=== PATIENT | female | born 1970 | race Caucasian/White ===

== ENCOUNTER 2016-04-29 16:23 | Observation (INO) | payer BC, OTHER ==
[~2016-04-29] VITALS: Ht 162.6 cm; Wt 93.0 kg
[2016-04-29 17:43] LABS: BASO % 0.6 % (0.0-1.0); EOS # 0.2 K/mm3 (0.0-0.50); EOS % 2.9 % (0.0-3.0); LARGE UNSTAINED CELL # 0.2 K/mm3 (0.0-0.4); LARGE UNSTAINED CELL % 3.4 % (0.0-4.0); LYMPH # 2.4 K/mm3 (1.5-4.5); LYMPH % 30.1 % (24.0-44.0); MEAN CORPUSCULAR HEMOGLOBIN 19.9 pg (27.0-33.0); MEAN CORPUSCULAR HGB CONC 29.1 g/dl (32.0-36.5); MEAN CORPUSCULAR VOLUME 68.2 fl (80.0-96.0); MONO # 0.5 K/mm3 (0.0-0.8); MONO % 7.6 % (0.0-5.0); NEUTROPHILS # 3.9 K/mm3 (1.8-7.7); NEUTROPHILS % 55.4 % (36.0-66.0); PLATELET COUNT, AUTOMATED 294 k/mm3 (150-450); RED CELL DISTRIBUTION WIDTH 16.4 % (11.5-14.5)
[2016-04-29 17:48] LABS: ADD MORPHOLOGY? YES
[2016-04-29 17:57] LABS: ANION GAP 8 MEQ/L (8-16); BLOOD UREA NITROGEN 17 MG/DL (7-18); CALCIUM LEVEL 9.2 MG/DL (8.5-10.1); CARBON DIOXIDE LEVEL 27 MEQ/L (21-32); CHLORIDE LEVEL 106 MEQ/L (98-107); CREATININE FOR GFR 0.71 MG/DL (0.55-1.02); GLOMERULAR FILTRATION RATE > 60.0 (>58); GLUCOSE, FASTING 107 MG/DL (70-105); POTASSIUM SERUM 4.1 MEQ/L (3.5-5.1); SODIUM LEVEL 141 MEQ/L (136-145)
[2016-04-29] MEDS ORDERED: ISOVUE-370 76% 100ML VIAL (Q9967) As Ordered ONE (18:12)
[2016-04-29 18:38] LABS: ANISOCYTOSIS 1+; HYPOCHROMASIA 3+; MICROCYTOSIS 3+
--- NOTE | 2016-04-29 18:52 | REP ---
Clinical: Acute chest pain. Technique: Axial contrast enhanced images from the thoracic inlet to the upper abdomen using 100 ml Isovue 370 intravenous contrast material with coronal and sagittal re-formations. Findings: Satisfactory enhancement of the pulmonary vasculature is achieved and no filling defects are identified to suggest pulmonary embolus. Thoracic aorta is normal caliber without aneurysm or dissection. Heart and pericardium are normal. Bilateral lung harris are well aerated and clear without acute pulmonary parenchymal consolidation or atelectasis. No nodule or mass lesion. No pleural effusion/reaction. No pneumothorax. No adenopathy. Limited evaluation of the upper abdomen demonstrates chronic cortical scarring involving the right kidney with nonobstructing 9 mm calculus. Impression: No evidence for pulmonary embolus. No acute pleuroparenchymal or mediastinal process. Chronic cortical scarring involving the right kidney with 9 mm nonobstructing calculus. Signed by Edilberto Kiran MD 04/29/2016 06:43 P
[2016-04-29] MEDS ORDERED: IRON18TA PO (19:33)
--- NOTE | 2016-04-29 20:04 | ECGEPIP ---
Stationary ECG Study [facility] - ED Test Date: 2016-04-29 Pat Name: TOBI BARTON Department: Room: - Gender: F [place] Supervisor: lindsey : 1970 Requested By: ELVIN Rolon Order Number: [id number] Reading MD: Elizabeth Lawrence Measurements Intervals [place] Rate: 84 P: 27 AK: 135 QRS: 58 QRSD: 98 T: 29 QT: 353 QTc: 418 Interpretive Statements SINUS RHYTHM NSTTW ABNORMALITY NO PRIOR FOR COMPARISON Electronically Signed On 04-29-2016 20:04:48 EST by Elizabeth Lawrence
--- NOTE | 2016-04-29 20:32 | EDDOCDS ---
Physician Documentation [facility] Name: María Crawford Age: 46 yrs Sex: Female : 1970 Arrival Date: 04/29/2016 Time: 16:23 Bed 10 Private MD: NO PRIMARY PHYSICIAN, . Disposition: 04/29/16 19:16 Hospitalization ordered by Bro Senior for Inpatient Admission. Preliminary diagnosis is Dietary folate deficiency anemia. - Bed requested for M PED. - Status is Inpatient Admission. mlc - Condition is Stable. - Problem is chronic. - Symptoms have worsened. Historical: - Allergies: no known allergies; - Home Meds: 1. Iron CR Oral 5 tab daily - PMHx: Anemia; Sleep Apnea w/ CPAP; - PSHx: Gastric Bypass; - Social history: Smoking status: Patient states former smoker of tobacco. No barriers to communication noted, The patient speaks fluent Y[place], Speaks appropriately for age. - Family history: Not pertinent. - : The pt / caregiver states he / she is not on anticoagulants. Home medication list is obtained from the patient. - Exposure Risk Screening:: None identified. COUNTY ENGINEER: 04/29 16:35 LMP N/A - Irregular menses ld5 Vital Signs: 16:26 BP 187 / 98; Pulse 87; Resp 18 S; Temp 98.2(O); Pulse Ox 100% on R/A; Weight 92.99 kg / gr2 205.01 lbs (R); Height 5 ft. 4 in. (162.56 cm) (R); Pain 2/10; 16:41 BP 182 / 102 (auto/); pml 16:43 Pulse 84 MON; Pulse Ox 100% ; pml 16:56 BP 176 / 100 (auto/); pml 16:57 Pulse 94 MON; Pulse Ox 98% ; pml 17:11 BP 169 / 90 (auto/); pml 17:12 Pulse 88 MON; Pulse Ox 98% ; pml 17:26 BP 165 / 94 (auto/); pml 17:27 Pulse 80 MON; Pulse Ox 100% ; pml 17:41 BP 177 / 91 (auto/); pml 17:42 Pulse 104 MON; pml 17:56 BP 176 / 96 (auto/); pml 17:57 Pulse 86 MON; Pulse Ox 99% ; pml 18:11 BP 173 / 97 (auto/); pml 18:12 Pulse 86 MON; Pulse Ox 99% ; pml 18:22 BP 167 / 97 Supine; Pulse 76; pml 18:22 BP 173 / 102 Sitting; Pulse 80; pml 18:22 BP 180 / 110 Standing; Pulse 90; pml 18:26 BP 170 / 95 (auto/); mlc 18:26 Pulse 84 MON; Pulse Ox 100% ; mlc 18:41 BP 162 / 83 (auto/); mlc 18:42 Pulse 86 MON; Pulse Ox 99% ; mlc 18:56 BP 155 / 80 (auto/); mlc 18:57 Pulse 84 MON; Pulse Ox 98% ; mlc 19:07 Pulse 78 MON; Pulse Ox 100% ; mlc 19:56 BP 193 / 106 (auto/); mlc 20:07 BP 166 / 100; Pulse 98; Resp 18; Pulse Ox 98% on R/A; Pain 0/10; mlc 20:16 Temp 98.9(O); mlc 16:26 Body Mass Index 35.19 (92.99 kg, 162.56 cm) gr2 MDM: 16:38 ECG WITH READING ER PHYS+CARDIAG ordered. EDMS 16:52 Quality Systems Specialist/Pulse Ox/q 15 min VS ordered. fg 16:52 IV Saline Lock ordered. fg 16:52 Rhythm Strip to chart ordered. fg 16:52 Orthostatic VS ordered. fg 16:53 Chest, 1 View Ordered. EDMS 16:53 -Blood Culture Ordered. EDMS 16:53 B-Type Natiuretic Peptide Ordered. EDMS 16:53 Basic Metabolic Profile Ordered. EDMS 16:53 CBC with Diff Ordered. EDMS 17:28 CT Chest Angio R/O PE Ordered. EDMS 17:42 Financial registration complete. zo 17:43 [facility] Payment Agreement was scanned into [employer] and attached to record. zo 17:49 RBC MORPH PROF NO CHARGE Ordered. EDMS 19:06 CARDIAC MARKER PANEL Ordered. EDMS 19:09 Transfuse PRBC's 2 units, ensure PRBCs ordered in lab ordered. fg 19:10 Type and Cross, Packed Cells Ordered. EDMS 19:11 TYPE & SCREEN Ordered. EDMS 19:16 BED REQUEST+ADM ordered. EDMS 19:18 Admission / Observation Status ordered. EDMS Signatures: Dispatcher [employer] EDMS Jovanny Carrizales, Drill Bit Sharpener Unit ml3 Dwain Dill Laura,RN RN ld5 Agnieszka Burgos,RN RN pml Jena No,RN RN Emily Staley MD MD fg The chart was reviewed and I authenticate all verbal orders and agree with the evaluation and treatment provided.Corrections: (The following items were deleted from the chart) 19:06 17:28 TROPONIN+LAB ordered. EDMS EDMS 19: 17:28 CARDIAC MARKER PANEL+LAB ordered. EDMS EDMS Attachments: 17:43 [facility] Payment Agreement zo MTDD
--- NOTE | 2016-04-29 20:32 | EDDOCDS ---
Nurse's Notes [facility] Name: María Crawford Age: 46 yrs Sex: Female : 1970 Arrival Date: 04/29/2016 Time: 16:23 Bed 10 Private MD: NO PRIMARY PHYSICIAN, . Diagnosis: Dietary folate deficiency anemia Presentation: 04/29 16:30 Presenting complaint: Patient states: Fluttering to chest and feeling lightheaded ld5 starting this morning. Several episodes of chest pain that resolved. Has experienced this before but never lasting this long. Frequently SOB. Increasing amount of fatigue. Adult Sepsis Screening: The patient does not have new or worsening altered mentation. Patient's respiratory rate is less than 22. Systolic blood pressure is greater than 100. Patient has a qSOFA score of 0- Negative Sepsis Screen. Suicide/Homicide risk assessment- the patient denies having any suicidal and/or homicidal ideations and does not present with any other emotional, behavioral or mental health complaints. Status: Patient is not a service architect or dependent. Transition of care: patient was not received from another setting of care. 16:30 Acuity: DEIRDRE Level 2 ld5 16:30 Method Of Arrival: Walkin/Carried/Asstd ld5 Triage Assessment: 16:35 General: Appears in no apparent distress, Behavior is cooperative. Pain: Denies pain. ld5 Neurological: Level of Consciousness is awake, alert. Respiratory: Onset: The symptoms/episode began/occurred this morning, pt has to take breaks when speaking to catch breath Reports shortness of breath at rest on exertion cough that is non-productive. Derm: Skin is intact, Skin is dry, Skin is pale. WEIGHT CHECKER: 16:35 LMP N/A - Irregular menses ld5 Historical: - Allergies: no known allergies; - Home Meds: 1. Iron CR Oral 5 tab daily - PMHx: Anemia; Sleep Apnea w/ CPAP; - PSHx: Gastric Bypass; - Social history: Smoking status: Patient states former smoker of tobacco. No barriers to communication noted, The patient speaks fluent [place] Islander, Speaks appropriately for age. - Family history: Not pertinent. - : The pt / caregiver states he / she is not on anticoagulants. Home medication list is obtained from the patient. - Exposure Risk Screening:: None identified. Screenin:23 Screening information is obtained from the patient. Fall risk: No risks identified. pml Assistance ADL's: requires no assistance with activities of daily living. Abuse/DV Screen: The patient / caregiver reports he/she is: not in a situation that causes fear, pain or injury. Nutritional screening: No deficits noted. Advance Directives: Currently, there is no health care proxy. home support is adequate. Assessment: 17:00 General: Appears in no apparent distress, comfortable, Behavior is appropriate for age, pml cooperative. Pain: Denies pain. Neurological: Level of Consciousness is awake, alert, Oriented to person, place, time. Cardiovascular: Capillary refill < 3 seconds Rhythm is sinus rhythm No ectopy. Derm: Skin is pink, warm & dry. 18:20 General: Appears in no apparent distress, comfortable. Pain: Denies pain. Neurological: pml Level of Consciousness is awake, alert, Oriented to person, place, time. Cardiovascular: Capillary refill < 3 seconds Rhythm is sinus rhythm No ectopy. Respiratory: Airway is patent Respiratory effort is even, unlabored, Respiratory pattern is regular, symmetrical, Breath sounds are clear bilaterally. GI: Abdomen is non- distended. Derm: Skin is pink, warm & dry. 19:07 General: Appears in no apparent distress, comfortable, Behavior is cooperative, mlc pleasant. General: pt drinking water, tolerating well. . Pain: Denies pain. Neurological: Level of Consciousness is awake, alert, obeys commands, Oriented to person, place, time. Cardiovascular: Capillary refill < 3 seconds Heart tones S1 S2 present Rhythm is sinus rhythm Chest pain is denied. Respiratory: Airway is patent Respiratory effort is even, unlabored, Respiratory pattern is regular, Breath sounds are clear bilaterally. Derm: Skin is pale. Vital Signs: 16:26 BP 187 / 98; Pulse 87; Resp 18 S; Temp 98.2(O); Pulse Ox 100% on R/A; Weight 92.99 kg gr2 (R); Height 5 ft. 4 in. (162.56 cm) (R); Pain 2/10; 16:41 BP 182 / 102 (auto/); pml 16:43 Pulse 84 MON; Pulse Ox 100% ; pml 16:56 BP 176 / 100 (auto/); pml 16:57 Pulse 94 MON; Pulse Ox 98% ; pml 17:11 BP 169 / 90 (auto/); pml 17:12 Pulse 88 MON; Pulse Ox 98% ; pml 17:26 BP 165 / 94 (auto/); pml 17:27 Pulse 80 MON; Pulse Ox 100% ; pml 17:41 BP 177 / 91 (auto/); pml 17:42 Pulse 104 MON; pml 17:56 BP 176 / 96 (auto/); pml 17:57 Pulse 86 MON; Pulse Ox 99% ; pml 18:11 BP 173 / 97 (auto/); pml 18:12 Pulse 86 MON; Pulse Ox 99% ; pml 18:22 BP 167 / 97 Supine; Pulse 76; pml 18:22 BP 173 / 102 Sitting; Pulse 80; pml 18:22 BP 180 / 110 Standing; Pulse 90; pml 18:26 BP 170 / 95 (auto/); mlc 18:26 Pulse 84 MON; Pulse Ox 100% ; mlc 18:41 BP 162 / 83 (auto/); mlc 18:42 Pulse 86 MON; Pulse Ox 99% ; mlc 18:56 BP 155 / 80 (auto/); mlc 18:57 Pulse 84 MON; Pulse Ox 98% ; mlc 19:07 Pulse 78 MON; Pulse Ox 100% ; mlc 19:56 BP 193 / 106 (auto/); mlc 20:07 BP 166 / 100; Pulse 98; Resp 18; Pulse Ox 98% on R/A; Pain 0/10; mlc 20:16 Temp 98.9(O); mlc 16:26 Body Mass Index 35.19 (92.99 kg, 162.56 cm) gr2 Vitals: 16:26 Log In Time: April 29, 2016 at 16:26. RN notified that patient meets Red Flag gr2 criteria. ED Course: 16:25 Patient visited by Serge Smith. gr2 16:25 Patient moved to Waiting gr2 16:26 NO PRIMARY PHYSICIAN, . is Private Physician. gr2 16:29 Patient visited by Serge Smith. gr2 16:29 Patient moved to Pre RCE gr2 16:33 Triage Initiated ld5 16:36 Patient visited by Riana Mulligan,MARCO. ld5 16:37 Karli Pierson,RN is Primary Nurse. ld5 16:37 Agnieszka Burgos,MARCO is Primary Nurse. ld5 16:37 Patient moved to 10 ld5 16:45 Patient visited by Darlene Johnson. dem1 16:45 playground monitor on. Pulse ox on. NIBP on. dem1 16:45 EKG done. (by ED staff). Reviewed by Emily Ramirez MD. dem1 16:50 Emily Ramirez MD is Attending Physician. fg 17:16 Patient visited by Emily Ramirez MD. fg 17:26 -Blood Culture Sent. jc4 17:26 B-Type Natiuretic Peptide Sent. jc4 17:26 Basic Metabolic Profile Sent. jc4 17:26 CBC with Diff Sent. jc4 17:27 Inserted saline lock: 20 gauge in right antecubital area The patient tolerated the jc4 procedure well. 17:43 [facility] Payment Agreement was scanned into [employer] and attached to record. zo 18:23 Patient visited by Agnieszka Burgos RN. pml 18:23 The patient / caregiver is instructed regarding the plan of care and ED course. Patient pml has correct armband on for positive identification. Placed in gown. Bed in low position. Call light in reach. Side rails up X2. 19:00 Jena No,RN is Primary Nurse. mlc 19:07 CARDIAC MARKER PANEL Sent. mlc 19:08 CT Chest Angio R/O PE Returned. EDMS 19:09 Patient visited by Jena No RN. mlc 19:12 Type and Cross, Packed Cells Sent. mlc 19:15 Bro Senior DO is Hospitalizing Provider. fg 20:09 Bre Hartman historian dramatic arts. ys2 20:16 No procedures done that require assistance. mlc Order Results: Lab Order: B-Type Natiuretic Peptide; SPEC'M 04/29/16 17:23 Test: BRAIN NATRIURETIC PEPTIDE; Value: 10.2; Range: <100; Units: PG/ML; Status: F Lab Order: Basic Metabolic Profile; SPEC'M 04/29/16 17:23 Test: GLUCOSE, FASTING; Value: 107; Range: 70-105; Abnormal: Above high normal; Units: MG/DL; Status: F Test: BLOOD UREA NITROGEN; Value: 17; Range: 7-18; Units: MG/DL; Status: F Test: CREATININE FOR GFR; Value: 0.71; Range: 0.55-1.02; Units: MG/DL; Status: F Test: GLOMERULAR FILTRATION RATE; Value: > 60.0; Range: >58; Status: F Test: SODIUM LEVEL; Value: 141; Range: 136-145; Units: MEQ/L; Status: F Test: POTASSIUM SERUM; Value: 4.1; Range: 3.5-5.1; Units: MEQ/L; Status: F Test: CHLORIDE LEVEL; Value: 106; Range: 98-107; Units: MEQ/L; Status: F Test: CARBON DIOXIDE LEVEL; Value: 27; Range: 21-32; Units: MEQ/L; Status: F Test: ANION GAP; Value: 8; Range: 8-16; Units: MEQ/L; Status: F Test: CALCIUM LEVEL; Value: 9.2; Range: 8.5-10.1; Units: MG/DL; Status: F Test Note: ; Units are mL/min/1.73 m2 Chronic Kidney Disease Staging per NKF: Stage I & II GFR >=60 Normal to Mildly Decreased Stage III GFR 30-59 Moderately Decreased Stage IV GFR 15-29 Severely Decreased Stage V GFR <15 Very Little GFR Left ESRD GFR <15 on HARDWARE SALES ASSISTANT Lab Order: CBC with Diff; SPEC'M 04/29/16 17:23 Test: WHITE BLOOD COUNT; Value: 7.0; Range: 4.0-10.0; Units: K/mm3; Status: F Test: RED BLOOD COUNT; Value: 4.48; Range: 4.00-5.40; Units: M/mm3; Status: F Test: HEMOGLOBIN; Value: 8.9; Range: 12.0-16.0; Abnormal: Below low normal; Units: g/dl; Status: F Test: HEMATOCRIT; Value: 30.6; Range: 36.0-47.0; Abnormal: Below low normal; Units: %; Status: F Test: MEAN CORPUSCULAR VOLUME; Value: 68.2; Range: 80.0-96.0; Abnormal: Below low normal; Units: fl; Status: F Test: MEAN CORPUSCULAR HEMOGLOBIN; Value: 19.9; Range: 27.0-33.0; Abnormal: Below low normal; Units: pg; Status: F Test: MEAN CORPUSCULAR HGB CONC; Value: 29.1; Range: 32.0-36.5; Abnormal: Below low normal; Units: g/dl; Status: F Test: RED CELL DISTRIBUTION WIDTH; Value: 16.4; Range: 11.5-14.5; Abnormal: Above high normal; Units: %; Status: F Test: PLATELET COUNT, AUTOMATED; Value: 294; Range: 150-450; Units: k/mm3; Status: F Test: NEUTROPHILS %; Value: 55.4; Range: 36.0-66.0; Units: %; Status: F Test: LYMPH %; Value: 30.1; Range: 24.0-44.0; Units: %; Status: F Test: MONO %; Value: 7.6; Range: 0.0-5.0; Abnormal: Above high normal; Units: %; Status: F Test: EOS %; Value: 2.9; Range: 0.0-3.0; Units: %; Status: F Test: BASO %; Value: 0.6; Range: 0.0-1.0; Units: %; Status: F Test: LARGE UNSTAINED CELL %; Value: 3.4; Range: 0.0-4.0; Units: %; Status: F Test: NEUTROPHILS #; Value: 3.9; Range: 1.8-7.7; Units: K/mm3; Status: F Test: LYMPH #; Value: 2.4; Range: 1.5-4.5; Units: K/mm3; Status: F Test: MONO #; Value: 0.5; Range: 0.0-0.8; Units: K/mm3; Status: F Test: EOS #; Value: 0.2; Range: 0.0-0.50; Units: K/mm3; Status: F Test: BASO #; Value: 0.0; Range: 0.0-0.2; Units: K/mm3; Status: F Test: LARGE UNSTAINED CELL #; Value: 0.2; Range: 0.0-0.4; Units: K/mm3; Status: F Lab Order: RBC MORPH PROF NO CHARGE; SPEC'M 04/29/16 17:23 Test: PLATELET ESTIMATE; Range: NORMAL; Status: I Test: HYPOCHROMASIA; Value: 3+; Status: F Test: ANISOCYTOSIS; Value: 1+; Status: F Test: MICROCYTOSIS; Value: 3+; Status: F Test: PLATELET ESTIMATE; Value: NORMAL; Range: NORMAL; Status: F Lab Order: CARDIAC MARKER PANEL; SPEC'M 04/29/16 17:23 Test: CPK CREATINE PHOSPHOKINASE; Value: 68; Range: 26-192; Units: U/L; Status: F Test: CK-MB VALUE MASS; Value: 1.0; Range: 0.0-3.6; Units: NG/ML; Status: F Test: MB/CK RELATIVE INDEX; Value: 1.47; Range: < OR =4; Status: F Test: TROPONIN I; Value: < 0.02; Range: < 0.10; Units: NG/ML; Status: F Test Note: ; DIAGNOSIS CRITERIA MMB ng/ml Relative Index (RI) NON-AMI < or = 5 N/A GALLARDO ZONE > 5 < or = 4 AMI > 5 > 4 Lab Order: TYPE & SCREEN; SPEC'M 04/29/16 17: Test: BLOOD TYPE; Value: O POS; Status: F Test: AB SCREEN (INDIRECT SY)VIS; Value: NEGATIVE; Status: F Test: IMMEDIATE SPIN CROSSMATCH; Value: [id number] O POSITIVE Compatible? Y; Status: F Test: IMMEDIATE SPIN CROSSMATCH; Value: [id number] O POSITIVE Compatible? Y; Status: F Radiology Order: CT Chest Angio R/O PE Test: CT Chest Angio R/O PE REASON FOR EXAMINATION: Chest Pain; Clinical: Acute chest pain.; ; Technique: Axial contrast enhanced images from the thoracic inlet to the upper; abdomen using 100 ml Isovue 370 intravenous contrast material with coronal and; sagittal re-formations.; ; Findings: Satisfactory enhancement of the pulmonary vasculature is achieved and; no filling defects are identified to suggest pulmonary embolus. Thoracic aorta; is normal caliber without aneurysm or dissection. Heart and pericardium are; normal. Bilateral lung harris are well aerated and clear without acute pulmonary; parenchymal consolidation or atelectasis. No nodule or mass lesion. No pleural; effusion/reaction. No pneumothorax. No adenopathy.; ; Limited evaluation of the upper abdomen demonstrates chronic cortical scarring; involving the right kidney with nonobstructing 9 mm calculus.; ; Impression:; No evidence for pulmonary embolus.; No acute pleuroparenchymal or mediastinal process.; Chronic cortical scarring involving the right kidney with 9 mm nonobstructing; calculus.; ; ; Signed by; Edilberto Kiran MD 04/29/2016 06:43 P; Outcome: 19:16 Decision to Hospitalize by Provider. fg 20:12 Discharge Assessment: Patient awake, alert and oriented x 3. No cognitive and/or mlc functional deficits noted. Patient verbalized understanding of disposition instructions. patient administered narcotics - no. The following High Risk Discharge criteria are identified: None. Admitted to Pediatrics accompanied by tech, via wheelchair. CT Study completed. Admission hand-off: Report called to MARCO Santiago. Property :Personal belongings accompany Pt. 20:16 Condition: stable. mlc 20:31 Patient left the ED. [facility] Signatures: Dispatcher [employer] EDMS Dwain Dill Laura, RN RN ld5 Jessica North RN RN jc4 Agnieszka Burgos RN RN Darlene Trejo1 Serge Smith gr2 Jena No RN RN [facility] Emily Ramirez MD MD Devan, Díaz ys2 Corrections: (The following items were deleted from the chart) 19:06 17:33 TROPONIN+LAB sent. [facility] EDME 19:06 17:33 CARDIAC MARKER PANEL+LAB sent. [facility] EDME MTDD
[2016-04-29] MEDS ORDERED: ACETAMINOPHEN TAB 650MG DOSE (2X325MG) PO PRN (20:45)
[2016-04-29 20:46] VITALS: BP 171/104
[2016-04-29] MEDS: LISINOPRIL 10 MG TAB PO SCH (21:08)
[2016-04-29] MEDS: HEPARIN SOD (PORCINE) 5000 UNITS/ML VIAL SC SCH (21:09)
[2016-04-29 21:11] LABS: FERRITIN 4 NG/ML (8-252); PERCENT SATURATION 3.2 % (13.2-37.4); TOTAL IRON BINDING CAPACITY 502 UG/DL (250-450)
--- NOTE | 2016-04-29 21:45 | HPE ---
DATE OF ADMISSION: 04/29/2016 PRIMARY CARE PROVIDER: None. HISTORY OF PRESENT ILLNESS: The patient is a 46-year-old female with a past medical history significant for gastric bypass and obstructive sleep apnea, who presented to [facility] on 04/29/2016 for worsening lightheadedness, chest pain, and shortness of breath. The patient stated that she has had gastric bypass since eight years ago, but since then she has been having some issues with electrolytes, especially with iron. Previously, the patient has been taking iron supplements; however, it has not been sufficient for her. She had been anemic chronically. The patient experienced intermittent chest pain, lightheadedness, shortness of breath, however, this morning, around 10:00 o'clock, when the patient was walking in the lab, her lightheadedness and chest discomfort started acutely and has been persistent throughout the whole day without any improvements. Therefore, the patient came to [facility] for further evaluation. The patient denies any blood in the stool. Denies any coughing up blood. Denies any associated symptoms. ALLERGIES: No known drug allergies. MEDICATIONS: - iron supplement daily PAST MEDICAL HISTORY: 1. Chronic iron deficiency anemia. 2. Obstructive sleep apnea, not compliant with CPAP. 3. Gastric bypass 8 years ago. SOCIAL HISTORY: The patient quit smoking 27 years ago. Denies alcohol use. Denies recreational drug use. REVIEW OF SYSTEMS: GENERAL: No fever. No chills. HEENT: No vision changes. No auditory changes. CARDIOVASCULAR: Chest discomfort throughout the whole chest without any significant radiation. No palpitations. RESPIRATORY: Worsening cough since 10:00 a.m. today. Previously, the patient has intermittent cough without any obvious sputum production. GASTROINTESTINAL: History of gastric bypass 8 years ago. No nausea. No vomiting. No stomach pain. No diarrhea. No blood in the stool. MUSCULOSKELETAL: Generalized muscle aches. No joint or muscle swelling. NEUROLOGIC: No numbness or tingling. OBJECTIVE: VITAL SIGNS: Blood pressure is 166/100, pulse is 98, respirations 18, temperature is 98.2, pulse oximetry is 98% on room air. Body weight is 99.9 kg. Body height is 162.56 cm. PHYSICAL EXAMINATION: GENERAL: No sign of acute distress. Alert and oriented times three. HEENT: Normocephalic, atraumatic. Extraocular motors grossly intact. CARDIOVASCULAR: Positive S1, S2. Regular rate. LUNGS: Clear to auscultation bilaterally. No wheezes or rhonchi. ABDOMEN: Soft, nontender, nondistended. Bowel sounds present. No rebound. No guarding. EXTREMITIES: No sign of cyanosis. No calf tenderness. LABORATORY DATA: WBC 7, hemoglobin 8.9, hematocrit 30.6, platelet count is 294. Sodium is 141, potassium 4.1, chloride is 106, carbon dioxide 27, BUN is 17, creatinine 0.71, GFR greater than 60, fasting glucose 107, calcium is 9.2, total CK is 68, troponin I is less than 0.02, BNP is 10.2. IMAGING STUDIES: CT angiogram of the chest does not show evidence of pulmonary embolism. No acute pleural, parenchymal or mediastinum process. Chronic cortical scarring involving the right kidney with 9 mm nonobstructing calculus. ASSESSMENT AND PLAN: 1. Symptomatic anemia. The patient was admitted to the medical/surgical floor under observation status. Blood consent was obtained. The patient will have 1 packed red blood cell transfusion. The patient's anemia is most likely secondary to iron deficiency anemia from gastric bypass sequelae. We will follow with iron studies, B12 and folic acid studies. We will complete workup with stool occult blood test. The patient is complaining of lightheadedness and chest pain. The chest pain may be related to the patient's anemia. First set of troponin negative. We will followup with a repeat. The patient had an EKG performed in the emergency room, which showed normal sinus rhythm. 2. Hypertension. The patient has persistent blood pressure, could be due to physical stress; however, per patient, the patient has been experiencing high blood pressure at baseline. We will start a trial of Lisinopril 10 mg by mouth twice a day and we will titrate it up with repeat measurements. 3. History of gastric bypass 8 years ago. The patient may have other electrolyte abnormalities. We will follow with a B12, folic acid, and iron studies. 4. Deep vein thrombosis (DVT) prophylaxis. The patient will be on heparin.
[2016-04-29 23:35] VITALS: BP 133/74
[2016-04-30] VITALS (7 sets, daily range): BP systolic 124–138; BP diastolic 76–85
[2016-04-30] MEDS: HEPARIN SOD (PORCINE) 5000 UNITS/ML VIAL SC SCH (06:12)
[2016-04-30 07:06] LABS: MEAN CORPUSCULAR HEMOGLOBIN 20.8 pg (27.0-33.0); MEAN CORPUSCULAR HGB CONC 29.7 g/dl (32.0-36.5); RED CELL DISTRIBUTION WIDTH 17.5 % (11.5-14.5); WHITE BLOOD COUNT 5.6 K/mm3 (4.0-10.0)
[2016-04-30 07:18] LABS: ANION GAP 8 MEQ/L (8-16); BLOOD UREA NITROGEN 13 MG/DL (7-18); CALCIUM LEVEL 8.2 MG/DL (8.5-10.1); CARBON DIOXIDE LEVEL 25 MEQ/L (21-32); CHLORIDE LEVEL 110 MEQ/L (98-107); CREATININE FOR GFR 0.61 MG/DL (0.55-1.02); GLOMERULAR FILTRATION RATE > 60.0 (>58); GLUCOSE, FASTING 90 MG/DL (70-105); POTASSIUM SERUM 4.1 MEQ/L (3.5-5.1); SODIUM LEVEL 143 MEQ/L (136-145)
[2016-04-30] MEDS ORDERED: IRON SUCROSE 100 MG/5 ML INJ (J1756) IV ONE (08:15)
[2016-04-30] MEDS: LISINOPRIL 10 MG TAB PO SCH (08:21)
[2016-04-30] MEDS ORDERED: IRON SUCROSE 25 MG in NS 50 ML IV ONE (10:00)
[2016-04-30] MEDS ORDERED: IRON SUCROSE 75 MG in NS 100 ML IV ONE (11:00)
[2016-04-30] MEDS ORDERED: FERR325T3 PO (12:20)
[2016-04-30] MEDS ORDERED: LISI10TA4 PO ×2 (12:20→18:57)
[2016-04-30] MEDS ORDERED: STOO100C PO (12:20)
--- NOTE | 2016-04-30 20:11 | DSES ---
DATE OF ADMISSION: 04/29/2016 DATE OF DISCHARGE: 04/30/2016 ATTENDING PHYSICIAN: Dr. Krista Medina PRIMARY CARE PHYSICIAN: Will be established. REFERRING PHYSICIAN: None. CONSULTING PHYSICIAN: None. CONDITION ON DISCHARGE: Stable. FINAL DIAGNOSIS: Symptomatic anemia. PROCEDURES: None. HISTORY OF PRESENT ILLNESS: The patient is a 46-year-old female with a past medical history significant for gastric bypass, obstructive sleep apnea, who presented to [facility] on 04/29/2016 for worsening lightheadedness, chest pain, shortness of breath. The patient stated that she had a gastric bypass about 8 years ago and since that point she has been having problems with electrolytes and vitamin absorption, especially iron. The patient was previously taking iron supplementation; however, noted that this was not sufficient for her. She has a history of chronic anemia. HOSPITAL COURSE: 1. Symptomatic anemia, likely secondary to iron deficiency anemia. The patient presented with shortness of breath and chest tightness, lightheadedness. Physical examination was not revealing. Iron showed that it was consistent with iron deficiency anemia. The patient received 1 unit of packed red blood cell transfusion. Prior to discharge, the patient received an iron infusion, and upon discharge she was given ferrous sulfate 325 mg by mouth twice a day to be taken. She was advised to followup with her primary care provider, and we will help her establish a primary care provider. 2. Hypertension. The patient presented with a blood pressure of systolic of 170. The patient was started on Lisinopril to be taken once a day. The patient was given a prescription to be taken as an outpatient. Blood pressure was well controlled while she was inpatient. 3. History of gastric bypass 8 years ago. The patient did not have any electrolyte abnormalities while inpatient. The patient had B12 and folic acid levels drawn, which are pending as an inpatient. 4. Deep vein thrombosis (DVT) prophylaxis. She was on sequential compression device (SCD). DISCHARGE MEDICATIONS: The patient is being discharged on the following medications: - docusate sodium 100 mg by mouth twice a day as needed for constipation - ferrous sulfate 325 mg by mouth twice a day - Lisinopril 10 mg by mouth daily DISCHARGE INSTRUCTIONS: The patient was advised to followup with her primary care provider and claims administrator in the next 7 days. She has been advised to remain compliant with treatment and medications and to return to the emergency room if she experiences any problems. Time spent on discharge: 35 minutes.
--- NOTE | 2016-05-01 21:32 | EDDOCDS ---
Nurse's Notes [facility] Name: María Crawford Age: 46 yrs Sex: Female : 1970 Arrival Date: 04/29/2016 Time: 16:23 Bed 10 Private MD: NO PRIMARY PHYSICIAN, . Diagnosis: Dietary folate deficiency anemia Presentation: 04/29 16:30 Presenting complaint: Patient states: Fluttering to chest and feeling lightheaded ld5 starting this morning. Several episodes of chest pain that resolved. Has experienced this before but never lasting this long. Frequently SOB. Increasing amount of fatigue. Adult Sepsis Screening: The patient does not have new or worsening altered mentation. Patient's respiratory rate is less than 22. Systolic blood pressure is greater than 100. Patient has a qSOFA score of 0- Negative Sepsis Screen. Suicide/Homicide risk assessment- the patient denies having any suicidal and/or homicidal ideations and does not present with any other emotional, behavioral or mental health complaints. Status: Patient is not a sales agent financial report service or dependent. Transition of care: patient was not received from another setting of care. 16:30 Acuity: DEIRDRE Level 2 ld5 16:30 Method Of Arrival: Walkin/Carried/Asstd ld5 Triage Assessment: 16:35 General: Appears in no apparent distress, Behavior is cooperative. Pain: Denies pain. ld5 Neurological: Level of Consciousness is awake, alert. Respiratory: Onset: The symptoms/episode began/occurred this morning, pt has to take breaks when speaking to catch breath Reports shortness of breath at rest on exertion cough that is non-productive. Derm: Skin is intact, Skin is dry, Skin is pale. 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 Iron CR Oral 5 tab daily - PMHx: Anemia; Sleep Apnea w/ CPAP; - PSHx: Gastric Bypass; - Social history: Smoking status: Patient states former smoker of tobacco. No barriers to communication noted, The patient speaks fluent Filipino, Speaks appropriately for age. - Family history: Not pertinent. - : The pt / caregiver states he / she is not on anticoagulants. Home medication list is obtained from the patient. - Exposure Risk Screening:: None identified. Screenin:23 Screening information is obtained from the patient. Fall risk: No risks identified. pml Assistance ADL's: requires no assistance with activities of daily living. Abuse/DV Screen: The patient / caregiver reports he/she is: not in a situation that causes fear, pain or injury. Nutritional screening: No deficits noted. Advance Directives: Currently, there is no health care proxy. home support is adequate. Assessment: 17:00 General: Appears in no apparent distress, comfortable, Behavior is appropriate for age, pml cooperative. Pain: Denies pain. Neurological: Level of Consciousness is awake, alert, Oriented to person, place, time. Cardiovascular: Capillary refill < 3 seconds Rhythm is sinus rhythm No ectopy. Derm: Skin is pink, warm & dry. 18:20 General: Appears in no apparent distress, comfortable. Pain: Denies pain. Neurological: pml Level of Consciousness is awake, alert, Oriented to person, place, time. Cardiovascular: Capillary refill < 3 seconds Rhythm is sinus rhythm No ectopy. Respiratory: Airway is patent Respiratory effort is even, unlabored, Respiratory pattern is regular, symmetrical, Breath sounds are clear bilaterally. GI: Abdomen is non- distended. Derm: Skin is pink, warm & dry. 19:07 General: Appears in no apparent distress, comfortable, Behavior is cooperative, mlc pleasant. General: pt drinking water, tolerating well. . Pain: Denies pain. Neurological: Level of Consciousness is awake, alert, obeys commands, Oriented to person, place, time. Cardiovascular: Capillary refill < 3 seconds Heart tones S1 S2 present Rhythm is sinus rhythm Chest pain is denied. Respiratory: Airway is patent Respiratory effort is even, unlabored, Respiratory pattern is regular, Breath sounds are clear bilaterally. Derm: Skin is pale. Vital Signs: 16:26 BP 187 / 98; Pulse 87; Resp 18 S; Temp 98.2(O); Pulse Ox 100% on R/A; Weight 92.99 kg gr2 (R); Height 5 ft. 4 in. (162.56 cm) (R); Pain 2/10; 16:41 BP 182 / 102 (auto/); pml 16:43 Pulse 84 MON; Pulse Ox 100% ; pml 16:56 BP 176 / 100 (auto/); pml 16:57 Pulse 94 MON; Pulse Ox 98% ; pml 17:11 BP 169 / 90 (auto/); pml 17:12 Pulse 88 MON; Pulse Ox 98% ; pml 17:26 BP 165 / 94 (auto/); pml 17:27 Pulse 80 MON; Pulse Ox 100% ; pml 17:41 BP 177 / 91 (auto/); pml 17:42 Pulse 104 MON; pml 17:56 BP 176 / 96 (auto/); pml 17:57 Pulse 86 MON; Pulse Ox 99% ; pml 18:11 BP 173 / 97 (auto/); pml 18:12 Pulse 86 MON; Pulse Ox 99% ; pml 18:22 BP 167 / 97 Supine; Pulse 76; pml 18:22 BP 173 / 102 Sitting; Pulse 80; pml 18:22 BP 180 / 110 Standing; Pulse 90; pml 18:26 BP 170 / 95 (auto/); mlc 18:26 Pulse 84 MON; Pulse Ox 100% ; mlc 18:41 BP 162 / 83 (auto/); mlc 18:42 Pulse 86 MON; Pulse Ox 99% ; mlc 18:56 BP 155 / 80 (auto/); mlc 18:57 Pulse 84 MON; Pulse Ox 98% ; mlc 19:07 Pulse 78 MON; Pulse Ox 100% ; mlc 19:56 BP 193 / 106 (auto/); mlc 20:07 BP 166 / 100; Pulse 98; Resp 18; Pulse Ox 98% on R/A; Pain 0/10; mlc 20:16 Temp 98.9(O); mlc 16:26 Body Mass Index 35.19 (92.99 kg, 162.56 cm) gr2 Vitals: 16:26 Log In Time: April 29, 2016 at 16:26. RN notified that patient meets Red Flag gr2 criteria. ED Course: 16:25 Patient visited by Serge Smith. gr2 16:25 Patient moved to Waiting gr2 16:26 NO PRIMARY PHYSICIAN, . is Private Physician. gr2 16:29 Patient visited by Serge Smith. gr2 16:29 Patient moved to Pre RCE gr2 16:33 Triage Initiated ld5 16:36 Patient visited by Riana Mulligan,MARCO. ld5 16:37 Karli Pierson,RN is Primary Nurse. ld5 16:37 Agnieszka Burgos,MARCO is Primary Nurse. ld5 16:37 Patient moved to 10 ld5 16:45 Patient visited by Darlene Johnson. dem1 16:45 quality assurance monitor on. Pulse ox on. NIBP on. dem1 16:45 EKG done. (by ED staff). Reviewed by Emily Ramirez MD. dem1 16:50 Emily Ramirez MD is Attending Physician. fg 17:16 Patient visited by Emily Ramirez MD. fg 17:26 -Blood Culture Sent. jc4 17:26 B-Type Natiuretic Peptide Sent. jc4 17:26 Basic Metabolic Profile Sent. jc4 17:26 CBC with Diff Sent. jc4 17:27 Inserted saline lock: 20 gauge in right antecubital area The patient tolerated the jc4 procedure well. 17:43 [facility] [place] Payment Agreement was scanned into Reocar and attached to record. zo 18:23 Patient visited by Agnieszka Burgos,MARCO. pml 18:23 The patient / caregiver is instructed regarding the plan of care and ED course. Patient pml has correct armband on for positive identification. Placed in gown. Bed in low position. Call light in reach. Side rails up X2. 19:00 Jena No,RN is Primary Nurse. mlc 19:07 CARDIAC MARKER PANEL Sent. mlc 19:08 CT Chest Angio R/O PE Returned. EDMS 19:09 Patient visited by Jena No RN. mlc 19:12 Type and Cross, Packed Cells Sent. mlc 19:15 Bro Seinor DO is Hospitalizing Provider. fg 20:09 Bre Hartman agency appointments supervisor. ys2 20:16 No procedures done that require assistance. [facility] 04/30 09:55 T-Sheet-- Draft Copy was scanned into Reocar and attached to record. gb 09:55 ECG/EKG was scanned into Reocar and attached to record. gb 09:55 Trend VS was scanned into Reocar and attached to record. gb Attachments: 09:55 Trend VS gb Order Results: Lab Order: B-Type Natiuretic Peptide; SPEC'M 04/29/16 17:23 Test: BRAIN NATRIURETIC PEPTIDE; Value: 10.2; Range: <100; Units: PG/ML; Status: F Lab Order: Basic Metabolic Profile; SPEC'M 04/29/16 17:23 Test: GLUCOSE, FASTING; Value: 107; Range: 70-105; Abnormal: Above high normal; Units: MG/DL; Status: F Test: BLOOD UREA NITROGEN; Value: 17; Range: 7-18; Units: MG/DL; Status: F Test: CREATININE FOR GFR; Value: 0.71; Range: 0.55-1.02; Units: MG/DL; Status: F Test: GLOMERULAR FILTRATION RATE; Value: > 60.0; Range: >58; Status: F Test: SODIUM LEVEL; Value: 141; Range: 136-145; Units: MEQ/L; Status: F Test: POTASSIUM SERUM; Value: 4.1; Range: 3.5-5.1; Units: MEQ/L; Status: F Test: CHLORIDE LEVEL; Value: 106; Range: 98-107; Units: MEQ/L; Status: F Test: CARBON DIOXIDE LEVEL; Value: 27; Range: 21-32; Units: MEQ/L; Status: F Test: ANION GAP; Value: 8; Range: 8-16; Units: MEQ/L; Status: F Test: CALCIUM LEVEL; Value: 9.2; Range: 8.5-10.1; Units: MG/DL; Status: F Test Note: ; Units are mL/min/1.73 m2 Chronic Kidney Disease Staging per NKF: Stage I & II GFR >=60 Normal to Mildly Decreased Stage III GFR 30-59 Moderately Decreased Stage IV GFR 15-29 Severely Decreased Stage V GFR <15 Very Little GFR Left ESRD GFR <15 on AREA FORESTER Lab Order: CBC with Diff; SPEC'M 04/29/16 17:23 Test: WHITE BLOOD COUNT; Value: 7.0; Range: 4.0-10.0; Units: K/mm3; Status: F Test: RED BLOOD COUNT; Value: 4.48; Range: 4.00-5.40; Units: M/mm3; Status: F Test: HEMOGLOBIN; Value: 8.9; Range: 12.0-16.0; Abnormal: Below low normal; Units: g/dl; Status: F Test: HEMATOCRIT; Value: 30.6; Range: 36.0-47.0; Abnormal: Below low normal; Units: %; Status: F Test: MEAN CORPUSCULAR VOLUME; Value: 68.2; Range: 80.0-96.0; Abnormal: Below low normal; Units: fl; Status: F Test: MEAN CORPUSCULAR HEMOGLOBIN; Value: 19.9; Range: 27.0-33.0; Abnormal: Below low normal; Units: pg; Status: F Test: MEAN CORPUSCULAR HGB CONC; Value: 29.1; Range: 32.0-36.5; Abnormal: Below low normal; Units: g/dl; Status: F Test: RED CELL DISTRIBUTION WIDTH; Value: 16.4; Range: 11.5-14.5; Abnormal: Above high normal; Units: %; Status: F Test: PLATELET COUNT, AUTOMATED; Value: 294; Range: 150-450; Units: k/mm3; Status: F Test: NEUTROPHILS %; Value: 55.4; Range: 36.0-66.0; Units: %; Status: F Test: LYMPH %; Value: 30.1; Range: 24.0-44.0; Units: %; Status: F Test: MONO %; Value: 7.6; Range: 0.0-5.0; Abnormal: Above high normal; Units: %; Status: F Test: EOS %; Value: 2.9; Range: 0.0-3.0; Units: %; Status: F Test: BASO %; Value: 0.6; Range: 0.0-1.0; Units: %; Status: F Test: LARGE UNSTAINED CELL %; Value: 3.4; Range: 0.0-4.0; Units: %; Status: F Test: NEUTROPHILS #; Value: 3.9; Range: 1.8-7.7; Units: K/mm3; Status: F Test: LYMPH #; Value: 2.4; Range: 1.5-4.5; Units: K/mm3; Status: F Test: MONO #; Value: 0.5; Range: 0.0-0.8; Units: K/mm3; Status: F Test: EOS #; Value: 0.2; Range: 0.0-0.50; Units: K/mm3; Status: F Test: BASO #; Value: 0.0; Range: 0.0-0.2; Units: K/mm3; Status: F Test: LARGE UNSTAINED CELL #; Value: 0.2; Range: 0.0-0.4; Units: K/mm3; Status: F Lab Order: RBC MORPH PROF NO CHARGE; SPEC'M 04/29/16 17:23 Test: PLATELET ESTIMATE; Range: NORMAL; Status: I Test: HYPOCHROMASIA; Value: 3+; Status: F Test: ANISOCYTOSIS; Value: 1+; Status: F Test: MICROCYTOSIS; Value: 3+; Status: F Test: PLATELET ESTIMATE; Value: NORMAL; Range: NORMAL; Status: F Lab Order: CARDIAC MARKER PANEL; [facility] 04/29/16 17: Test: CPK CREATINE PHOSPHOKINASE; Value: 68; Range: 26-192; Units: U/L; Status: F Test: CK-MB VALUE MASS; Value: 1.0; Range: 0.0-3.6; Units: NG/ML; Status: F Test: MB/CK RELATIVE INDEX; Value: 1.47; Range: < OR =4; Status: F Test: TROPONIN I; Value: < 0.02; Range: < 0.10; Units: NG/ML; Status: F Test Note: ; DIAGNOSIS CRITERIA MMB ng/ml Relative Index (RI) NON-AMI < or = 5 N/A GALLARDO ZONE > 5 < or = 4 AMI > 5 > 4 Lab Order: TYPE & SCREEN; [facility] 04/29/16 Test: BLOOD TYPE; Value: O POS; Status: F Test: AB SCREEN (INDIRECT SY)VIS; Value: NEGATIVE; Status: F Test: IMMEDIATE SPIN CROSSMATCH; Value: [id number] O POSITIVE Compatible? Y; Status: F Test: IMMEDIATE SPIN CROSSMATCH; Value: [id number] O POSITIVE Compatible? Y; Status: F Lab Order: TOTAL IRON BINDING CAPACIT; [facility] 04/29/16 Test: IRON (FE); Range: 50-170; Units: UG/DL; Status: I Test: TOTAL IRON BINDING CAPACITY; Range: 250-450; Units: UG/DL; Status: I Test: PERCENT SATURATION; Range: 13.2-37.4; Units: %; Status: I Lab Order: THYROID STIMULATING HORMONE; [facility] 04/29/16 Test: THYROID STIMULATING HORMONE; Range: 0.358-3.740; Units: uIU/ML; Status: I Lab Order: FERRITIN; [facility] 04/29/16 Test: FERRITIN; Range: 8-252; Units: NG/ML; Status: I Radiology Order: CT Chest Angio R/O PE Test: CT Chest Angio R/O PE REASON FOR EXAMINATION: Chest Pain; Clinical: Acute chest pain.; ; Technique: Axial contrast enhanced images from the thoracic inlet to the upper; abdomen using 100 ml Isovue 370 intravenous contrast material with coronal and; sagittal re-formations.; ; Findings: Satisfactory enhancement of the pulmonary vasculature is achieved and; no filling defects are identified to suggest pulmonary embolus. Thoracic aorta; is normal caliber without aneurysm or dissection. Heart and pericardium are; normal. Bilateral lung harris are well aerated and clear without acute pulmonary; parenchymal consolidation or atelectasis. No nodule or mass lesion. No pleural; effusion/reaction. No pneumothorax. No adenopathy.; ; Limited evaluation of the upper abdomen demonstrates chronic cortical scarring; involving the right kidney with nonobstructing 9 mm calculus.; ; Impression:; No evidence for pulmonary embolus.; No acute pleuroparenchymal or mediastinal process.; Chronic cortical scarring involving the right kidney with 9 mm nonobstructing; calculus.; ; ; Signed by; Edilberto Kiran MD 04/29/2016 06:43 P; Outcome: 04/29 19:16 Decision to Hospitalize by Provider. fg 20:12 Discharge Assessment: Patient awake, alert and oriented x 3. No cognitive and/or mlc functional deficits noted. Patient verbalized understanding of disposition instructions. patient administered narcotics - no. The following High Risk Discharge criteria are identified: None. Admitted to Pediatrics accompanied by tech, via wheelchair. CT Study completed. Admission hand-off: Report called to MARCO Santiago. Property :Personal belongings accompany Pt. 20:16 Condition: stable. mlc 20:31 Patient left the ED. [facility] Signatures: Dispatcher [employer] EDMS Roseline Yan, Reg Reg gb Fuentes, Riana Saez RN RN ld5 Castle, Jennifer, RN RN quoc4 Agnieszka Burgos RN RN pml Mack, Demeishia dem1 Serge Smith gr2 Jena No RN RN [facility] Emily Ramirez MD MD Francesca, Díaz ys2 Corrections: (The following items were deleted from the chart) 19:06 17:33 TROPONIN+LAB sent. [facility] EDMS 19:06 17:33 CARDIAC MARKER PANEL+LAB sent. jc4 EDMS Chart Complete MTDD
--- NOTE | 2016-05-01 21:32 | EDDOCDS ---
Physician Documentation [facility] Name: María Crawford Age: 46 yrs Sex: Female : 1970 Arrival Date: 04/29/2016 Time: 16:23 Bed 10 Private MD: NO PRIMARY PHYSICIAN, . Disposition: 04/29/16 19:16 Hospitalization ordered by Bro Senior for Inpatient Admission. Preliminary diagnosis is Dietary folate deficiency anemia. - Bed requested for M PED. - Status is Inpatient Admission. mlc - Condition is Stable. - Problem is chronic. - Symptoms have worsened. Historical: - Allergies: no known allergies; - Home Meds: 1. Iron CR Oral 5 tab daily - PMHx: Anemia; Sleep Apnea w/ CPAP; - PSHx: Gastric Bypass; - Social history: Smoking status: Patient states former smoker of tobacco. No barriers to communication noted, The patient speaks fluent Italian, Speaks appropriately for age. - Family history: Not pertinent. - : The pt / caregiver states he / she is not on anticoagulants. Home medication list is obtained from the patient. - Exposure Risk Screening:: None identified. 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 4 in. (162.56 cm) (R); Pain 2/10; 16:41 BP 182 / 102 (auto/); pml 16:43 Pulse 84 MON; Pulse Ox 100% ; pml 16:56 BP 176 / 100 (auto/); pml 16:57 Pulse 94 MON; Pulse Ox 98% ; pml 17:11 BP 169 / 90 (auto/); pml 17:12 Pulse 88 MON; Pulse Ox 98% ; pml 17:26 BP 165 / 94 (auto/); pml 17:27 Pulse 80 MON; Pulse Ox 100% ; pml 17:41 BP 177 / 91 (auto/); pml 17:42 Pulse 104 MON; pml 17:56 BP 176 / 96 (auto/); pml 17:57 Pulse 86 MON; Pulse Ox 99% ; pml 18:11 BP 173 / 97 (auto/); pml 18:12 Pulse 86 MON; Pulse Ox 99% ; pml 18:22 BP 167 / 97 Supine; Pulse 76; pml 18:22 BP 173 / 102 Sitting; Pulse 80; pml 18:22 BP 180 / 110 Standing; Pulse 90; pml 18:26 BP 170 / 95 (auto/); mlc 18:26 Pulse 84 MON; Pulse Ox 100% ; mlc 18:41 BP 162 / 83 (auto/); mlc 18:42 Pulse 86 MON; Pulse Ox 99% ; mlc 18:56 BP 155 / 80 (auto/); mlc 18:57 Pulse 84 MON; Pulse Ox 98% ; mlc 19:07 Pulse 78 MON; Pulse Ox 100% ; mlc 19:56 BP 193 / 106 (auto/); mlc 20:07 BP 166 / 100; Pulse 98; Resp 18; Pulse Ox 98% on R/A; Pain 0/10; mlc 20:16 Temp 98.9(O); mlc 16:26 Body Mass Index 35.19 (92.99 kg, 162.56 cm) gr2 MDM: 16:38 ECG WITH READING ER PHYS+CARDIAG ordered. EDMS 16:52 Advanced Practice Provider/Pulse Ox/q 15 min VS ordered. fg 16:52 IV Saline Lock ordered. fg 16:52 Rhythm Strip to chart ordered. fg 16:52 Orthostatic VS ordered. fg 16:53 Chest, 1 View Ordered. EDMS 16:53 -Blood Culture Ordered. EDMS 16:53 B-Type Natiuretic Peptide Ordered. EDMS 16:53 Basic Metabolic Profile Ordered. EDMS 16:53 CBC with Diff Ordered. EDMS 17:28 CT Chest Angio R/O PE Ordered. EDMS 17:42 Financial registration complete. zo 17:43 [facility] Payment Agreement was scanned into BackTrack and attached to record. zo 17:49 RBC MORPH PROF NO CHARGE Ordered. EDMS 19:06 CARDIAC MARKER PANEL Ordered. EDMS 19:09 Transfuse PRBC's 2 units, ensure PRBCs ordered in lab ordered. fg 19:10 Type and Cross, Packed Cells Ordered. EDMS 19:11 TYPE & SCREEN Ordered. EDMS 19:16 BED REQUEST+ADM ordered. EDMS 19:18 Admission / Observation Status ordered. EDMS 20:32 COMPLETE BLOOD COUNT Ordered. EDMS 20:33 BASIC METABOLIC PROFILE Ordered. EDMS 20:34 VITAMIN B12 LEVEL Ordered. EDMS 20:34 FOLATE Ordered. EDMS 20:34 IRON (FE) Ordered. EDMS 20:34 TOTAL IRON BINDING CAPACIT Ordered. EDMS 20:34 FERRITIN Ordered. EDMS 20:34 THYROID STIMULATING HORMONE Ordered. EDMS 20:35 CARDIAC MARKER PANEL Ordered. EDMS 20:36 PACKED CELLS Ordered. EDMS 20:36 TYPE & SCREEN Ordered. EDMS 20:44 2 GRAM SODIUM DIET ordered. EDMS 04/30 09:55 T-Sheet-- Draft Copy was scanned into MEDHOST and attached to record. gb 09:55 ECG/EKG was scanned into MEDHOST and attached to record. gb 09:55 Trend VS was scanned into MEDHOST and attached to record. gb Signatures: Dispatcher [employer] EDMS Roseline Yan, Reg Reg gb SofiePaulLisette, Wood Stainer Unit ml3 Dwain Dill LauraRN RN ld5 Agnieszka Burgos RN RN pml Jena No RN RN mlc Emily Ramirez MD MD fg The chart was reviewed and I authenticate all verbal orders and agree with the evaluation and treatment provided.Corrections: (The following items were deleted from the chart) 04/29 19:06 17:28 TROPONIN+LAB ordered. EDMS EDMS 19: 17:28 CARDIAC MARKER PANEL+LAB ordered. EDMS EDMS Attachments: 17:43 [facility] [place] Payment Agreement zo 04/30 09:55 T-Sheet-- Draft Copy gb 09:55 ECG/EKG gb Chart Complete MTDD
--- NOTE | 2016-05-01 21:32 | EDDOCDS ---
Physician Documentation [facility] Name: María Crawford Age: 46 yrs Sex: Female : 1970 Arrival Date: 04/29/2016 Time: 16:23 Bed 10 Private MD: NO PRIMARY PHYSICIAN, . Disposition: 04/29/16 19:16 Hospitalization ordered by Bro Senior for Inpatient Admission. Preliminary diagnosis is Dietary folate deficiency anemia. - Bed requested for M PED. - Status is Inpatient Admission. mlc - Condition is Stable. - Problem is chronic. - Symptoms have worsened. Historical: - Allergies: no known allergies; - Home Meds: 1. Iron CR Oral 5 tab daily - PMHx: Anemia; Sleep Apnea w/ CPAP; - PSHx: Gastric Bypass; - Social history: Smoking status: Patient states former smoker of tobacco. No barriers to communication noted, The patient speaks fluent Setswana, Speaks appropriately for age. - Family history: Not pertinent. - : The pt / caregiver states he / she is not on anticoagulants. Home medication list is obtained from the patient. - Exposure Risk Screening:: None identified. RETENTION MANAGER: 04/29 16:35 LMP N/A - Irregular menses ld5 Vital Signs: 16:26 BP 187 / 98; Pulse 87; Resp 18 S; Temp 98.2(O); Pulse Ox 100% on R/A; Weight 92.99 kg / gr2 205.01 lbs (R); Height 5 ft. 4 in. (162.56 cm) (R); Pain 2/10; 16:41 BP 182 / 102 (auto/); pml 16:43 Pulse 84 MON; Pulse Ox 100% ; pml 16:56 BP 176 / 100 (auto/); pml 16:57 Pulse 94 MON; Pulse Ox 98% ; pml 17:11 BP 169 / 90 (auto/); pml 17:12 Pulse 88 MON; Pulse Ox 98% ; pml 17:26 BP 165 / 94 (auto/); pml 17:27 Pulse 80 MON; Pulse Ox 100% ; pml 17:41 BP 177 / 91 (auto/); pml 17:42 Pulse 104 MON; pml 17:56 BP 176 / 96 (auto/); pml 17:57 Pulse 86 MON; Pulse Ox 99% ; pml 18:11 BP 173 / 97 (auto/); pml 18:12 Pulse 86 MON; Pulse Ox 99% ; pml 18:22 BP 167 / 97 Supine; Pulse 76; pml 18:22 BP 173 / 102 Sitting; Pulse 80; pml 18:22 BP 180 / 110 Standing; Pulse 90; pml 18:26 BP 170 / 95 (auto/); mlc 18:26 Pulse 84 MON; Pulse Ox 100% ; mlc 18:41 BP 162 / 83 (auto/); mlc 18:42 Pulse 86 MON; Pulse Ox 99% ; mlc 18:56 BP 155 / 80 (auto/); mlc 18:57 Pulse 84 MON; Pulse Ox 98% ; mlc 19:07 Pulse 78 MON; Pulse Ox 100% ; mlc 19:56 BP 193 / 106 (auto/); mlc 20:07 BP 166 / 100; Pulse 98; Resp 18; Pulse Ox 98% on R/A; Pain 0/10; mlc 20:16 Temp 98.9(O); mlc 16:26 Body Mass Index 35.19 (92.99 kg, 162.56 cm) gr2 MDM: 16:38 ECG WITH READING ER PHYS+CARDIAG ordered. EDMS 16:52 Circle Cutting Saw Operator/Pulse Ox/q 15 min VS ordered. fg 16:52 IV Saline Lock ordered. fg 16:52 Rhythm Strip to chart ordered. fg 16:52 Orthostatic VS ordered. fg 16:53 Chest, 1 View Ordered. EDMS 16:53 -Blood Culture Ordered. EDMS 16:53 B-Type Natiuretic Peptide Ordered. EDMS 16:53 Basic Metabolic Profile Ordered. EDMS 16:53 CBC with Diff Ordered. EDMS 17:28 CT Chest Angio R/O PE Ordered. EDMS 17:42 Financial registration complete. zo 17:43 [facility] Payment Agreement was scanned into [employer] and attached to record. zo 17:49 RBC MORPH PROF NO CHARGE Ordered. EDMS 19:06 CARDIAC MARKER PANEL Ordered. EDMS 19:09 Transfuse PRBC's 2 units, ensure PRBCs ordered in lab ordered. fg 19:10 Type and Cross, Packed Cells Ordered. EDMS 19:11 TYPE & SCREEN Ordered. EDMS 19:16 BED REQUEST+ADM ordered. EDMS 19:18 Admission / Observation Status ordered. EDMS 20:32 COMPLETE BLOOD COUNT Ordered. EDMS 20:33 BASIC METABOLIC PROFILE Ordered. EDMS 20:34 VITAMIN B12 LEVEL Ordered. EDMS 20:34 FOLATE Ordered. EDMS 20:34 IRON (FE) Ordered. EDMS 20:34 TOTAL IRON BINDING CAPACIT Ordered. EDMS 20:34 FERRITIN Ordered. EDMS 20:34 THYROID STIMULATING HORMONE Ordered. EDMS 20:35 CARDIAC MARKER PANEL Ordered. EDMS 20:36 PACKED CELLS Ordered. EDMS 20:36 TYPE & SCREEN Ordered. EDMS 20:44 2 GRAM SODIUM DIET ordered. EDMS 04/30 09:55 T-Sheet-- Draft Copy was scanned into MED[employer] and attached to record. gb 09:55 ECG/EKG was scanned into MED[employer] and attached to record. gb 09:55 Trend VS was scanned into MED[employer] and attached to record. gb Signatures: Dispatcher [employer] EDMS Roseline Yan, Reg Reg gb SofiePaulLisette, Laundry Marker Supervisor Unit ml3 Dwain Dill LauraRN RN ld5 Agnieszka Burgos RN RN pml Jena No RN RN mlc Emily Ramirez MD MD fg The chart was reviewed and I authenticate all verbal orders and agree with the evaluation and treatment provided.Corrections: (The following items were deleted from the chart) 04/29 19:06 17:28 TROPONIN+LAB ordered. EDMS EDMS 19: 17:28 CARDIAC MARKER PANEL+LAB ordered. EDMS EDMS Attachments: 17:43 [facility] Payment Agreement zo 04/30 09:55 T-Sheet-- Draft Copy gb 09:55 ECG/EKG gb Chart Complete MTDD
[2016-05-02 10:02] LABS: FOLATE 11.6 NG/ML (>5.4)
--- NOTE | 2016-05-02 13:17 | REP ---
Clinical: Chest pain . Comparison: 02/05/2007 . Findings: The mediastinum and cardiac silhouette are stable and within normal limits for portable technique. The lung harris are clear without acute consolidation, effusion, or pneumothorax. Skeletal structures are intact. Impression: Normal portable chest x-ray Signed by Edilberto Kiran MD 05/02/2016 01:08 P
== END 2016-04-30 14:15 | disposition home or self-care (01) ==
LOC: M ED 16:23 → M ED INP 19:15 → M PED 20:47
PROVIDERS: ADMIT Hospitalist; ATTEND Internal Medicine
DX: D64.9 Anemia, unspecified (principal); R06.02 Shortness of breath; R42 Dizziness and giddiness; R07.89 Other chest pain; I10 Essential (primary) hypertension; G47.33 Obstructive sleep apnea (adult) (pediatric); Z98.84 Bariatric surgery status; Z87.891 Personal history of nicotine dependence
CPT/HCPCS: 36415; 36430; 71010; 71275; 80048; 82550; 82553; 82607; 82728; 82746; 83550; 83880; 84443; 85025; 85027; 86850; 86900; 86901; 86920; 87040; 93005; 93041; 96372; 96374; 96376; 99285; J1756; P9016; Q9967

== ENCOUNTER → 2016-05-05 | Outpatient (REF) | payer OTHER ==
[~2016-05-05] MED LIST: FERR325T3 PO; IRON18TA PO; LISI10TA4 PO; STOO100C PO
[2016-05-05 12:37] LABS: PERCENT SATURATION 9.5 % (13.2-37.4)
== END ==
LOC: M LAB REF 11:37
PROVIDERS: ATTEND Internal Medicine Medical Oncology
DX: D64.9 Anemia, unspecified (principal)

== ENCOUNTER → 2016-06-02 | Outpatient (REF) | payer OTHER ==
[2016-06-02 17:49] LABS: PERCENT SATURATION 11.7 % (13.2-37.4)
== END ==
LOC: M LAB REF 16:31
PROVIDERS: ATTEND Internal Medicine Medical Oncology
DX: D64.9 Anemia, unspecified (principal); E53.8 Deficiency of other specified B group vitamins

== ENCOUNTER → 2017-05-11 | Outpatient (CLI) | payer OTHER | LOC: M EKG 17:05 | DX: Z01.818 Encounter for other preprocedural examination (principal); M17.12 Unilateral primary osteoarthritis, left knee; S83.242A Other tear of medial meniscus, current injury, left knee, initial encounter; X58.XXXA Exposure to other specified factors, initial encounter; Y92.89 Other specified places as the place of occurrence of the external cause; Y93.89 Activity, other specified; Y99.8 Other external cause status | CPT/HCPCS: 93005 ==

== ENCOUNTER → 2018-04-12 | Outpatient (RCR) | payer BC, OTHER | LOC: M PT 03-21 10:25 | PROVIDERS: ATTEND Orthopaedic Surgery | DX: Z47.1 Aftercare following joint replacement surgery (principal); Z96.652 Presence of left artificial knee joint | CPT/HCPCS: 97010; 97110; 97116; 97140; 97161; 97530; G0283 ==

== ENCOUNTER → 2018-05-10 | Outpatient (RCR) | payer OTHER | LOC: M PT 04-17 14:08 | PROVIDERS: ATTEND Orthopaedic Surgery | DX: Z47.1 Aftercare following joint replacement surgery (principal); Z96.652 Presence of left artificial knee joint | CPT/HCPCS: 97010; 97110; 97140; G0283 ==

== ENCOUNTER 2018-06-07 13:00 | Outpatient (RCR) | payer OTHER | END 2018-06-10 | LOC: M PT 13:00 | PROVIDERS: ATTEND Orthopaedic Surgery | DX: Z47.1 Aftercare following joint replacement surgery (principal); Z96.652 Presence of left artificial knee joint | CPT/HCPCS: 97010; 97110; 97140; G0283 ==

== ENCOUNTER → 2018-07-10 | Outpatient (RCR) | payer OTHER | LOC: M PT 06-11 12:53 | PROVIDERS: ATTEND Orthopaedic Surgery | DX: M17.12 Unilateral primary osteoarthritis, left knee (principal) ==

== ENCOUNTER 2018-08-09 12:15 | Outpatient (RCR) | payer OTHER | END 2018-08-10 | LOC: M PT 12:15 | PROVIDERS: ATTEND Orthopaedic Surgery | DX: Z96.652 Presence of left artificial knee joint (principal) ==

== ENCOUNTER 2018-08-15 07:45 | Outpatient (RCR) | payer OTHER ==
[2018-09-18] MEDS ORDERED: BENA25CA4 PO (14:14)
[2018-09-18] MEDS ORDERED: CHLO125TA PO (14:14)
[2018-09-18] MEDS ORDERED: FAMO20TA PO (14:14)
[2018-09-18] MEDS ORDERED: VALS1TAB68 PO (14:14)
[2018-09-18] MEDS ORDERED: PROAAER10 INH (14:14)
== END 2018-09-09 ==
LOC: M PT 07:45
PROVIDERS: ATTEND Orthopaedic Surgery
DX: Z96.652 Presence of left artificial knee joint (principal)

== ENCOUNTER 2018-09-19 11:30 | Day surgery (SDC) | payer BC, OTHER ==
[~2018-09-19] VITALS: Ht 163.8 cm; Wt 102.5 kg
[~2018-09-19 11:30] MED LIST changes: +BENA25CA4 PO; +CHLO125TA PO; +FAMO20TA PO; +LIDOCAINE 2% INJ 100 MG/5 ML SDV (FOR ANES.) As Ordered ONE; +MIDAZOLAM INJ 2 MG/2 ML VIAL (J2250) As Ordered ONE; +MM S100C PO; +ONDANSETRON 4MG/2ML VIAL (J2405) As Ordered ONE; +PROAAER10 INH; +PROPOFOL 200 MG/20 ML VIAL As Ordered ONE; +PROPOFOL 500 MG/50 ML VIAL As Ordered ONE; -STOO100C PO; +VALS1TAB68 PO; +fentaNYL 100 MCG/2 ML INJECTION (J3010) As Ordered ONE
[2018-09-19] MEDS ORDERED: LR 1,000 ML IV ONE (12:00)
[2018-09-19] MEDS ORDERED: LIDOCAINE 1% MDV 20ML VIAL As Ordered ONE (12:29)
[2018-09-19 14:40] VITALS: BP 124/76
--- NOTE | 2018-09-19 14:59 | RO ---
DATE OF OPERATION: 09/19/2018 PREPROCEDURE DIAGNOSIS: Unexplained syncope. POSTPROCEDURE DIAGNOSIS: Unexplained syncope. FINDINGS: Unexplained syncope. PROCEDURE PERFORMED: Implantation of a [employer] implantable loop recorder. SURGEON: Naveed Matias MD TABLE COVER FOLDER: None. ANESTHESIA: Lidocaine 1% times 10 mL, monitored anesthetic care. SPECIMENS: None. ESTIMATED BLOOD LOSS: Less than 3 mL. BLOOD PRODUCTS REPLACED: None. DRAINS: None. COMPLICATIONS: None. DESCRIPTION OF PROCEDURE: The patient was prepped and draped over the sternum and left anterior chest. An incision slightly more than 1 cm in length was made with a #15 blade through the skin at approximately the left fourth interspace about 1 inch lateral to the left parasternal border. The guide on the insertion tool was placed into the incision and advanced parallel to the ribcage with the first position tried going in a caudal direction (vertical). The R waves were less than 0.2 mV. The device was removed and loaded back in the insertion tool. A second try was done, aiming at approximately 45-degree left lateral-caudal direction. This resulted in R waves also of less than 0.2 mV. The device was removed and put back into the insertion tool. At this time, the device was placed at a roughly left lateral direction, aiming at about a 30-degree angle towards the left shoulder. This position was satisfactory with initial R wave amplitudes of 0.26 mV. Next, a single 2-0 Vicryl suture was used to approximate the deep layer. I then used a 4-0 Biosyn suture to approximate the skin by applying the suture subcuticular with the ends of the suture protruding 1 cm from either end of the incision line. This suture was used only temporarily to approximate the skin with tension on the suture to keep the suture line tied together. I then applied three layers of Dermabond. The biosyn suture was then pulled through the incision and removed entirely. The patient tolerated the procedure well without any immediate complications. The implantable loop recorder implanted was a [employer] Confirm [employer]., model number [id number] with serial number [id number]. [facility]
== END 2018-09-19 14:50 | disposition home or self-care (01) ==
LOC: M SDC 11:30
PROVIDERS: ATTEND Internal Medicine Cardiovascular Disease
DX: R55 Syncope and collapse (principal); I10 Essential (primary) hypertension; G47.30 Sleep apnea, unspecified; K21.9 Gastro-esophageal reflux disease without esophagitis; D64.9 Anemia, unspecified; J45.909 Unspecified asthma, uncomplicated; Z87.891 Personal history of nicotine dependence; Z79.51 Long term (current) use of inhaled steroids; Z79.899 Other long term (current) drug therapy; Z98.84 Bariatric surgery status
CPT/HCPCS: 33285; C1764; J0690; J2250; J2405; J3010

== ENCOUNTER → 2019-01-10 | Outpatient (RCR) | payer OTHER ==
[~2019-01-10] MED LIST changes: -LIDOCAINE 2% INJ 100 MG/5 ML SDV (FOR ANES.) As Ordered ONE; -MIDAZOLAM INJ 2 MG/2 ML VIAL (J2250) As Ordered ONE; -ONDANSETRON 4MG/2ML VIAL (J2405) As Ordered ONE; -PROPOFOL 200 MG/20 ML VIAL As Ordered ONE; -PROPOFOL 500 MG/50 ML VIAL As Ordered ONE; -fentaNYL 100 MCG/2 ML INJECTION (J3010) As Ordered ONE
== END ==
LOC: M PT 01-08 10:43
PROVIDERS: ATTEND Physician Assistant
DX: Z47.89 Encounter for other orthopedic aftercare (principal); M17.11 Unilateral primary osteoarthritis, right knee; M70.61 Trochanteric bursitis, right hip; M43.16 Spondylolisthesis, lumbar region; M51.36 Other intervertebral disc degeneration, lumbar region

== ENCOUNTER 2019-01-23 12:47 | Outpatient (RCR) | payer OTHER | END 2019-02-09 | LOC: M PT 12:47 | PROVIDERS: ATTEND Physician Assistant | DX: Z47.89 Encounter for other orthopedic aftercare (principal); M17.11 Unilateral primary osteoarthritis, right knee; M70.61 Trochanteric bursitis, right hip; M43.16 Spondylolisthesis, lumbar region; M51.36 Other intervertebral disc degeneration, lumbar region ==

== ENCOUNTER → 2019-04-19 | Outpatient (CLI) | payer BC, OTHER ==
--- NOTE | 2019-04-19 13:43 | REP ---
MRI right knee without contrast: History: Pain in the right knee. Question meniscal tear. No comparison radiographs. Technique: Axial, sagittal, and coronal imaging planes were utilized. T1, proton density, and T2-weighted scans were obtained in the usual fashion with and without fat saturation. MRI findings: Cortical and medullary bone signal intensity are normal. There is a small joint effusion. There is no visible Marie's cyst. There is mild articular spurring at the superior pole of the patella consistent with early osteoarthritis. There is some increased signal intensity and slight thickening of the proximal centimeter and a half of patellar tendon consistent with some degree of patellar tendonitis. No adjacent edema is seen. Quadriceps tendon is unremarkable. There is a moderate patellar chondromalacia with partial thickness irregularity and fissuring of the patellar articular cartilage on axial T2-weighted scans. There is no evidence of medial or lateral collateral ligament disruption. Anterior and posterior cruciate ligaments have an intact appearance. No medial or lateral meniscal tear is appreciated. Impression: Small joint effusion. Moderate chondromalacia patella. Early patellar osteoarthritic spurring. Patellar tendonitis changes. Otherwise negative. Electronically Signed by Mitchell Jean-Baptiste MD 04/19/2019 01:56 P
--- NOTE | 2019-04-20 17:09 | REPVR ---
PROCEDURE INFORMATION: Exam: MR Lumbar Spine Without Contrast. Exam date and time: 04/19/2019 1:28 PM Age: 48 years old Clinical indication: Pain; Lumbago; Additional info: M25.561 pain in RT knee ? meniscus tear/lbp ? sten TECHNIQUE: Imaging protocol: Multiplanar magnetic resonance images of the lumbar spine without intravenous contrast. COMPARISON: No relevant prior studies available. FINDINGS: Vertebrae: Slight anterolisthesis of L4 on L5. Spinal cord: Normal signal. No cord compression. L1-L2: No significant disc disease. No significant spinal canal stenosis. No neural foraminal stenosis. L2-L3: No significant disc disease. No significant spinal canal stenosis. No neural foraminal stenosis. L3-L4: No significant disc disease. No significant spinal canal stenosis. No neural foraminal stenosis. L4-L5: There is a mild central spinal stenosis at L4-L5 secondary to diffuse annular bulging, slight anterolisthesis of L4 on L5, thickened ligamentum flavum with facet joint arthropathy. No lateral recess stenosis. Mild bilateral foraminal narrowing, left greater than right. L5-S1: Diffusely bulging annulus L5-S1 without central spinal stenosis. Bilateral facet joint arthropathy. No lateral recess stenosis. Mild foraminal narrowing on the right. Soft tissues: Unremarkable. IMPRESSION: 1. Mild central spinal stenosis L4-L5. 2. Diffusely bulging annulus L5-S1. Electronically signed by: Isael Mercer On 04/20/2019 17:09:16 PM
== END ==
LOC: M PLARAD 09:27
PROVIDERS: ATTEND Physician Assistant
DX: M25.561 Pain in right knee (principal)

== ENCOUNTER → 2019-04-19 | Outpatient (CLI) | payer BC, OTHER ==
--- NOTE | 2019-04-19 13:41 | REP ---
MRI right shoulder without contrast: History: Pain in the right shoulder. Evaluate for rotator cuff tear. No comparison radiographs. Technique: Axial, oblique coronal and oblique sagittal imaging planes were utilized for T1 and T2-weighted scans obtain in the usual fashion with and without fat saturation. MRI findings: The glenohumeral and acromioclavicular joints are normally aligned. There is a moderate AC joint hypertrophy superiorly and inferiorly. This inferior hypertrophy indents the musculotendinous junction of the supraspinatus. There is a small subacromial subdeltoid bursal effusion. There is subcortical cyst formation in the superomedial humeral head. Infraspinatus and subscapularis tendons appear intact. There is moderate diffuse tendonitis tendinosis change in the distal supraspinatus tendon with swelling and increased signal intensity diffusely on oblique coronal T1-weighted scans. There is some focal T2 hyperintensity at 12 o'clock position on the humeral head within the substance of the supraspinatus tendon on oblique coronal T2-weighted scans consistent with partial thickness supraspinatus lesion. There is also focal T2 hyperintensity in the distal tendon insertion anteriorly. There is no evidence of labral cartilage disruption. No articular cartilage lesion is seen. Periarticular skeletal muscle is normal in signal intensity and contour. Impression: Advanced tendonitis tendinosis change in the supraspinatus with partial thickness tear suspected at mid tendon and at the distal insertion of the supraspinatus tendon. Subacromial subdeltoid bursal effusion is seen. AC joint osteoarthritis. Electronically Signed by Mitchell Jean-Baptiste MD 04/19/2019 01:56 P
== END ==
LOC: M PLARAD 09:19
PROVIDERS: ATTEND Family Medicine
DX: M25.511 Pain in right shoulder (principal)

== ENCOUNTER → 2019-08-17 | Outpatient (CLI) | payer BC, OTHER ==
[~2019-08-17] MED LIST changes: +3ML25MIS SC; +ACET-683 PO; +CARV6.25 PO; +CYAN1000VL IM; +CYCLO; +CYCLOBEN; +METH750T2 PO; +NORV5TAB PO; +PANT40TA3 PO; +SPIR-10 PO
== END ==
LOC: M LABSMTC 09:21
PROVIDERS: ATTEND Anesthesiology
DX: Z01.818 Encounter for other preprocedural examination (principal); Z11.59 Encounter for screening for other viral diseases
CPT/HCPCS: C9803; U0003

== ENCOUNTER 2019-08-20 08:32 | Day surgery (SDC) | payer BC, OTHER ==
[~2019-08-20] VITALS: Ht 162.6 cm; Wt 88.1 kg
[~2019-08-20 08:32] MED LIST changes: +LR 1,000 ML IV ONE; +ceFAZolin SOD 2 GM in IV 1 EA IV ONE
[2019-08-20] MEDS ORDERED: CARVedilol 6.25 MG TAB PO ONE (09:30)
[2019-08-20 09:38] VITALS: BP 161/96
[2019-08-20] MEDS ORDERED: BUPIVACAINE/EPIN 0.25% 30 ML VIAL As Ordered ONE (11:02)
[2019-08-20] MEDS ORDERED: EPINEPHrine 1MG/ML INJ 30ML MD-VIAL As Ordered ONE (11:02)
[2019-08-20] MEDS ORDERED: propofoL 200 MG/20 ML VIAL As Ordered ONE (11:46)
[2019-08-20] MEDS ORDERED: METOCLOPRAMIDE INJ 10MG/2ML VIAL (J2765 PER 1) As Ordered ONE (11:46)
[2019-08-20] MEDS ORDERED: LIDOCAINE 2% 100MG/5ML SDV (FOR ANES.) As Ordered ONE (11:46)
[2019-08-20] MEDS ORDERED: fentaNYL 250 MCG/5 ML INJECTION (J3010) As Ordered ONE (11:46)
[2019-08-20] MEDS ORDERED: MIDAZOLAM INJ 2MG/2ML VIAL (J2250 PER 1MG) As Ordered ONE (11:46)
[2019-08-20] MEDS ORDERED: ONDANSETRON 4MG/2ML VIAL As Ordered ONE (11:46)
[2019-08-20] MEDS ORDERED: ROCURONIUM BROMIDE 50 MG/5 ML VIAL As Ordered ONE ×2 (11:46→13:23)
[2019-08-20] MEDS ORDERED: ACETAMINOPHEN 1000MG 100ML IV BTL (OFIRMEV) (J0131 PER 10MG) As Ordered ONE (11:46)
[2019-08-20] MEDS ORDERED: dexameTHASONE 4 MG/ML 1ML VIAL (J1100 PER 1MG) As Ordered ONE (11:46)
[2019-08-20] MEDS ORDERED: SUGAMMADEX SODIUM 500 MG/5 ML VIAL (BRIDION) As Ordered ONE (11:46)
[2019-08-20] MEDS ORDERED: KETOROLAC 60 MG/2 ML VIAL As Ordered ONE (12:10)
[2019-08-20] MEDS ORDERED: DESFLURANE 240 ML INHALANT As Ordered ONE (12:34)
[2019-08-20] MEDS ORDERED: fentaNYL 100 MCG/2 ML INJECTION (J3010) As Ordered ONE ×2 (13:23→14:08)
[2019-08-20] MEDS: fentaNYL 100 MCG/2 ML INJECTION (J3010) IV PRN ×4 (14:08→14:28)
[2019-08-20] MEDS: oxyCODONE 5MG TAB PO PRN ×3 (14:08→21:03)
[2019-08-20] MEDS ORDERED: oxyCODONE 5MG TAB As Ordered ONE (14:08)
[2019-08-20] MEDS ORDERED: ONDANSETRON 4MG/2ML VIAL IV PRN (14:15)
[2019-08-20] MEDS ORDERED: LR 1,000 ML IV SCH (14:15)
[2019-08-20] MEDS ORDERED: METOCLOPRAMIDE INJ 10MG/2ML VIAL (J2765 PER 1) IV PRN (14:15)
[2019-08-20] MEDS ORDERED: MEPERIDINE INJ 25 MG/ML VIAL (J2175) As Ordered ONE (14:20)
[2019-08-20] MEDS ORDERED: MEPERIDINE INJ 25 MG/ML VIAL (J2175) IV PRN (14:30)
[2019-08-20] MEDS: HYDROMORPHONE HCL 0.5 MG/ 0.5 ML SYRINGE (J1170 PER 1) IV PRN ×8 (14:33→16:33)
[2019-08-20] MEDS ORDERED: HYDROMORPHONE HCL 0.5 MG/ 0.5 ML SYRINGE (J1170 PER 1) As Ordered ONE ×2 (16:16→16:27)
[2019-08-20] MEDS ORDERED: oxyCODONE 5MG TAB PO PRN (17:30)
[2019-08-20] MEDS: MORPHINE 15 MG SA TAB PO SCH (18:02)
[2019-08-20 18:10] VITALS: BP 129/82
[2019-08-20 18:44] VITALS: BP 151/89
[2019-08-20] MEDS ORDERED: HYDROMORPHONE HCL 0.5 MG/ 0.5 ML SYRINGE (J1170 PER 1) IV PRN (19:45)
[2019-08-20 20:00] VITALS: BP 139/89
[2019-08-20] MEDS: LR 1,000 ML IV SCH (20:45)
[2019-08-20 21:00] VITALS: BP 161/97
[2019-08-20] MEDS: ACETAMINOPHEN 500 MG TAB PO SCH (21:04)
[2019-08-20 22:00] VITALS: BP 124/77
[2019-08-21] MEDS: LR 1,000 ML IV SCH (01:22)
[2019-08-21] MEDS: oxyCODONE 5MG TAB PO PRN ×4 (01:24→11:27)
[2019-08-21 02:00] VITALS: BP 124/78
[2019-08-21 06:00] VITALS: BP 134/78
[2019-08-21] MEDS: ACETAMINOPHEN 500 MG TAB PO SCH (06:11)
[2019-08-21] MEDS: MORPHINE 15 MG SA TAB PO SCH (06:12)
[2019-08-21 10:40] VITALS: BP 92/51
[2019-08-21 10:45] VITALS: BP 97/62
[2019-08-21 11:39] VITALS: BP 112/72
--- NOTE | 2019-08-23 13:57 | RO ---
DATE OF SURGERY: 08/20/2019 PREOPERATIVE DIAGNOSES: 1. Right shoulder partial thickness rotator cuff tear. 2. Right shoulder biceps tendonitis. 3. Right shoulder impingement. POSTOPERATIVE DIAGNOSES: 1. Right shoulder partial thickness rotator cuff tear. 2. Right shoulder biceps tendonitis. 3. Right shoulder impingement. PROCEDURE: 1. Right shoulder arthroscopic rotator cuff repair. 2. Right shoulder open subpectoral biceps tenodesis. 3. Right shoulder arthroscopic subacromial decompression. SURGEON: Dr. Irineo Thompson PARTY PLAN SALESPERSON: EMETERIO Clifford ANESTHESIA: General. INTRAVENOUS (IV) FLUIDS: Lactated Ringer's. ESTIMATED BLOOD LOSS: 10 mL. IMPLANTS: Arthrex proximal biceps button times one and Arthrex 4.75 mm Peak SwiveLock anchors times four. CLOSURE: Monocryl and nylon. DESCRIPTION OF PROCEDURE: The patient was evaluated in the preoperative holding area. The right shoulder was marked by myself. She is nontender at the acromioclavicular (AC) joint. She declined an interscalene nerve block because she suffered a cardiac arrhythmia from a prior nerve block. She was brought the operating room, placed supine on a well-padded operating room (OR) table with a beanbag. General anesthesia induced. Exam under anesthesia revealed 180 degrees of forward flexion, 90 of external rotation. No increased anterior or posterior translation. She was placed into the left side down lateral decubitus position with an axillary roll and all bony prominences were well padded. She had bilateral Venodyne boots for deep venous thrombosis (DVT) prophylaxis. The right arm was placed into the Arthrex StaR sleeve lateral decubitus traction freitas with 10 pounds of traction. Right shoulder was prepped and draped in normal sterile fashion with Chloraprep. She received appropriate IV antibiotics within 1 hour of incision. Time-out was then performed per hospital protocol. Leo Chauhan was present for the entire procedure and participated in all essential portions of procedure. This included patient positioning and draping, holding the arthroscope, holding retractors during the tenodesis, assisting with the whipstitching of the tendon, and assisting with suture anchor placement and suture retrieval during the rotator cuff repair, as well as performing the wound closure, applying the dressing and sling. The right shoulder was insufflated lactated Ringer's. A standard posterior viewing portal made with a #11-blade. A 30 degree arthroscope introduced into the joint. Diagnostic arthroscopy revealed no significant glenohumeral arthritis. The subscapularis was pristine. There was a high-grade partial articular tear of the supraspinatus extending into the infraspinatus. There was tendinopathy of the long head of the biceps and the tendon was thickened as it attached to the superior labrum. The anterior, posterior, and inferior labrum intact. An anterior working portal was established with a rotator interval and a tenotomy of the long head of biceps was performed with the meniscal biter. Tendon stump was debrided with the shaver. The partial articular rotator cuff tear was debrided with a shaver. This was a near full thickness tear. We then proceeded with an open biceps tenodesis. An incision made a #15 blade just lateral to the axilla and dissection down to the biceps fascia where the tendon was encountered and retrieved with a right angle clamp. A running locking whipstitch placed with a fiber loop, sutures loaded through the biceps button per routine. Unicortical drill hole made with a spade tip drill bit and bony debris irrigated. The button was passed through the drill hole on the collision technician. Sutures were toggled. We flipped the button and docked the tendon along the groove nicely. Curve free needle was used to pass one limb of the suture back through the tendon. Knots tied by hand to lock the construct in place. This nicely restored the resting tension. Incision was then extensively irrigated and closed in layered fashion with #2-0 Vicryl, #2-0 Vicryl and a running Monocryl. At the end of the case, Steri-Strips were placed. The arthroscope was now placed into the subacromial space where there was moderate bursitis and significant tendinopathy of the rotator cuff. After a bursectomy and a partial coracoacromial (CA) ligament release there was no large subacromial spur requiring an acromioplasty. A switching stick was used to palpate the bursal surface, the supraspinatus and this was felt to be a near full thickness tear. Therefore, the tear was completed with radiofrequency cautery at the far lateral attachment and then extending medially. Essentially, a few bursal fibers had remained intact. The ring curette was then used to clear soft tissue off the tuberosity and create a bleeding surface. I then proceeded with an Arthrex SpeedBridge rotator cuff repair. Two 4.75 mm Peak silk anchors preloaded with tape were placed just off the articular surface, one anterior, one further posterior. Eyelet sutures were passed far anteriorly and then the tape sutures passed anterior central. For the posterior anchor the eyelet stitches were passed central posterior and then the tapes far posterior. Eyelet sutures were then tied with a knot pusher using alternating half hitch technique. This set the far anterior tension and then set the central tension of the repair. I then proceeded with lateral row fixation. One limb from each medial row was brought out through an anterolateral portal loaded through 4.75 mm Peak silk anchor. Socket created with a punch and then the anchor docked, sutures tensioned, anchor inserted by hand with excellent fixation. These steps were repeated with the remaining sutures and a posterolateral anchor. This nicely compressed the rotator cuff against the tuberosity and created the box in X configuration. There were no dog ears. There is no lift off for buckling. The shoulder was irrigated and drained. Portals closed with nylon suture. Bulky sterile dressing applied. She was carefully placed into the R-2 sling, extubated and transferred to postanesthesia care unit (PACU) in stable condition.
== END 2019-08-21 11:30 | disposition home or self-care (01) ==
LOC: M SDC 08:32 → M MS5PR 17:50 → ENRESERV 17:53 → M SDC 08-21 11:30
PROVIDERS: ATTEND Orthopaedic Surgery
DX: M75.101 Unspecified rotator cuff tear or rupture of right shoulder, not specified as traumatic (principal); M75.21 Bicipital tendinitis, right shoulder; M75.41 Impingement syndrome of right shoulder; I10 Essential (primary) hypertension; J45.20 Mild intermittent asthma, uncomplicated; D50.8 Other iron deficiency anemias; R94.31 Abnormal electrocardiogram [ECG] [EKG]; E53.8 Deficiency of other specified B group vitamins; G47.33 Obstructive sleep apnea (adult) (pediatric); M17.11 Unilateral primary osteoarthritis, right knee; Z98.84 Bariatric surgery status; R73.01 Impaired fasting glucose; Z87.891 Personal history of nicotine dependence; Z79.899 Other long term (current) drug therapy
CPT/HCPCS: 23405; 29826; 29827; 88304; C1713; J0131; J0690; J1100; J1170; J1885; J2175; J2250; J2405; J2765; J3010

== ENCOUNTER → 2020-01-04 | Outpatient (CLI) | payer BC, OTHER ==
[~2020-01-04] MED LIST changes: -LR 1,000 ML IV ONE; +PANT40TA29 PO; -PANT40TA3 PO; -ceFAZolin SOD 2 GM in IV 1 EA IV ONE
== END ==
LOC: M LABSMTC 08:22
PROVIDERS: ATTEND Orthopaedic Surgery
DX: Z01.812 Encounter for preprocedural laboratory examination (principal); Z20.828 Contact with and (suspected) exposure to other viral communicable diseases

== ENCOUNTER → 2020-01-26 | Outpatient (CLI) | payer BC, OTHER ==
[~2020-01-26] MED LIST changes: +GABA-1171 PO
== END ==
LOC: M LABSMTC 08:54
PROVIDERS: ATTEND Anesthesiology
DX: Z01.812 Encounter for preprocedural laboratory examination (principal); Z20.828 Contact with and (suspected) exposure to other viral communicable diseases

== ENCOUNTER 2020-01-31 06:17 | Day surgery (SDC) | payer BC, OTHER ==
[~2020-01-31] VITALS: Ht 163.8 cm; Wt 31.1 kg
[2020-01-31] VITALS (8 sets, daily range): BP systolic 139–167; BP diastolic 80–96; O2SAT 98
[~2020-01-31 06:17] MED LIST changes: +LIDOCAINE 1% MDV 20ML VIAL SQ PRN
[2020-01-31] MEDS ORDERED: LR 1,000 ML IV ONE (07:00)
[2020-01-31] MEDS ORDERED: ceFAZolin SOD 2 GM in IV 1 EA IV ONE (07:00)
[2020-01-31] MEDS ORDERED: EPINEPHrine 1MG/ML INJ 30ML MD-VIAL As Ordered ONE (07:11)
[2020-01-31] MEDS ORDERED: LIDOCAINE 1% MDV 20ML VIAL As Ordered ONE (07:11)
[2020-01-31] MEDS ORDERED: BUPIVACAINE LIPOSOME/PF 1.3% 20ML VIAL (13.3MG/ML)(EXPAREL)(C9290 PER1MG) As Ordered ONE (07:12)
[2020-01-31] MEDS ORDERED: LIDOCAINE 2% 100MG/5ML SDV (FOR ANES.) As Ordered ONE ×2 (07:19→07:30)
[2020-01-31] MEDS ORDERED: propofoL 200 MG/20 ML VIAL As Ordered ONE (07:19)
[2020-01-31] MEDS ORDERED: ROCURONIUM BROMIDE 50 MG/5 ML VIAL As Ordered ONE ×2 (07:19→08:30)
[2020-01-31] MEDS ORDERED: ONDANSETRON 4MG/2ML VIAL As Ordered ONE (07:19)
[2020-01-31] MEDS ORDERED: dexameTHASONE 4 MG/ML 1ML VIAL (J1100 PER 1MG) As Ordered ONE (07:19)
[2020-01-31] MEDS ORDERED: MIDAZOLAM INJ 2MG/2ML VIAL (J2250 PER 1MG) As Ordered ONE (07:19)
[2020-01-31] MEDS ORDERED: fentaNYL 100 MCG/2 ML INJECTION (J3010) As Ordered ONE (07:20)
[2020-01-31] MEDS ORDERED: BUPIVACAINE HCL 0.5% 10ML VIAL As Ordered ONE (07:51)
[2020-01-31] MEDS ORDERED: HYDROmorphone HCL 2 MG/ML 1ML VIAL (J1170) As Ordered ONE (08:24)
[2020-01-31] MEDS: SPIRONOLACTONE 12.5MG PER 1/2 TABLET PO SCH (09:00)
[2020-01-31] MEDS: PANTOPRAZOLE 40MG TAB (PROTONIX) PO SCH (09:00)
[2020-01-31] MEDS: CHLORTHALIDONE 12.5MG PER 1/2 TABLET PO SCH (09:00)
[2020-01-31] MEDS: amLODIPine 5 MG TAB PO SCH (09:00)
[2020-01-31] MEDS ORDERED: SUGAMMADEX SODIUM 500 MG/5 ML VIAL (BRIDION) As Ordered ONE (09:28)
[2020-01-31] MEDS ORDERED: KETOROLAC 60MG 2ML VIAL As Ordered ONE (09:28)
[2020-01-31] MEDS ORDERED: ACETAMINOPHEN 1000MG 100ML IV BTL (OFIRMEV) (J0131 PER 10MG) As Ordered ONE (10:15)
[2020-01-31] MEDS: fentaNYL 100 MCG/2 ML INJECTION (J3010) IV PRN ×4 (10:59→11:16)
[2020-01-31] MEDS ORDERED: LR 1,000 ML IV SCH ×3 (11:00→14:30)
[2020-01-31] MEDS: PERCOCET 5MG/325MG TAB PO PRN ×3 (11:00→15:11)
[2020-01-31] MEDS ORDERED: METOCLOPRAMIDE INJ 10MG/2ML VIAL (J2765 PER 1) IV PRN ×3 (11:00→19:00)
[2020-01-31] MEDS ORDERED: ONDANSETRON 4MG/2ML VIAL IV PRN ×3 (11:00→19:00)
[2020-01-31] MEDS: HYDROMORPHONE HCL 0.5 MG/ 0.5 ML SYRINGE (J1170 PER 1) IV PRN ×4 (11:18→11:40)
[2020-01-31] MEDS: MORPHINE 15 MG SA TAB PO SCH ×2 (12:20→21:03)
[2020-01-31] MEDS ORDERED: HYDROMORPHONE HCL 0.5 MG/ 0.5 ML SYRINGE (J1170 PER 1) IV PRN (14:30)
[2020-01-31] MEDS ORDERED: PERCOCET 5MG/325MG TAB PO PRN ×2 (14:30)
[2020-01-31] MEDS ORDERED: fentaNYL 100 MCG/2 ML INJECTION (J3010) IV PRN (14:30)
[2020-01-31] MEDS ORDERED: IBUPROFEN 600MG TAB PO PRN (14:30)
[2020-01-31] MEDS ORDERED: ALBUTEROL 90 MCG/ACT 8GM HFA INHALER INH PRN (15:45)
[2020-01-31] MEDS: methocarbamoL 750 MG TAB PO SCH ×2 (16:00→21:02)
[2020-01-31] MEDS ORDERED: GABAPENTIN 100 MG CAP PO SCH ×2 (16:00→21:00)
[2020-01-31] MEDS ORDERED: IBUPROFEN 600MG TAB PO SCH (18:00)
[2020-01-31] MEDS ORDERED: diphenhydrAMINE 25MG CAP PO SCH (21:00)
[2020-01-31] MEDS ORDERED: VALSARTAN 80 MG TAB (DIOVAN) PO SCH (21:00)
[2020-01-31] MEDS ORDERED: MORPHINE 15 MG SA TAB PO SCH (21:00)
[2020-02-01 02:00] VITALS: BP 148/86
[2020-02-01] MEDS: PERCOCET 5MG/325MG TAB PO PRN ×2 (05:10→10:48)
[2020-02-01 07:03] VITALS: BP 152/83
[2020-02-01] MEDS: CHLORTHALIDONE 12.5MG PER 1/2 TABLET PO SCH (08:01)
[2020-02-01] MEDS: methocarbamoL 750 MG TAB PO SCH (08:01)
[2020-02-01] MEDS: SPIRONOLACTONE 12.5MG PER 1/2 TABLET PO SCH (08:01)
[2020-02-01 08:02] VITALS: BP 152/83
[2020-02-01] MEDS: amLODIPine 5 MG TAB PO SCH (08:02)
[2020-02-01] MEDS: PANTOPRAZOLE 40MG TAB (PROTONIX) PO SCH (08:02)
[2020-02-01] MEDS: MORPHINE 15 MG SA TAB PO SCH (08:03)
--- NOTE | 2020-02-01 15:01 | ECGEPIP ---
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 No remarkable changes but faster heart rate. Electronically Signed on 02-01-2020 15:01:30 EST by Basim Headley
--- NOTE | 2020-02-03 10:44 | RO ---
DATE: 01/31/2020 PREOPERATIVE DIAGNOSIS: 1. Right shoulder traumatic rotator cuff re-tear. 2. Right shoulder impingement. 3. Right shoulder acromioclavicular (AC) joint arthritis. POSTOPERATIVE DIAGNOSIS: 1. Right shoulder traumatic rotator cuff re-tear 2. Right shoulder acromioclavicular (AC) joint arthritis. 3. Right shoulder impingement. 4. Right shoulder arthrofibrosis. PROCEDURE: 1. Right shoulder manipulation under anesthesia. 2. Right shoulder arthroscopic revision rotator cuff repair. 3. Repair of right shoulder arthroscopic subacromial decompression including acromioplasty. 4. Right shoulder arthroscopic distal clavicle excision. 5. Right shoulder loose body removal. SURGEON: Irineo Thompson MD LEARNING SUPPORT RESOURCE ROOM TEACHER: EMETERIO Clifford ANESTHESIA: General. IV FLUID: Lactated Ringers ESTIMATED BLOOD LOSS: 5 ml. IMPLANTS: Arthrex 5.5 mm PEEK SwiveLock anchor times 4 CLOSURE: Nylon OPERATIVE PROCEDURE: The patient was identified in the preoperative holding area and the right shoulder was marked. The patient had a prior reaction to a nerve block from a knee surgery, so no preop block performed. We had previously obtained written informed consent for revision arthroscopic surgery. The patient was informed that I will be moving in April and she will follow up with one of my PAs starting in April. I will do her follow ups before that. She agreed to proceed with surgery. The patient was then brought to the operating room, placed supine on a well padded OR table with the beanbag. Bilateral SCDs for deep venous thrombosis (DVT) prophylaxis. After induction of general anesthesia, time-out was performed per hospital protocol. Examination under anesthesia revealed 150 degrees of forward flexion, 70 degrees of external rotation, we therefore performed a manipulation under anesthesia with steady forward flexion, forced applied and a small pop was felt and now she had a 170 degrees of forward flexion. The arm was then brought down into external rotation with her arm at her side followed by adduction. She now had 170 forward flexion, 90 of external rotation with her shoulder at 90 and 80 of external rotation with arm at her side. She was then placed on the left side down lateral decubitus position with an axillary roll and all bony prominences were well padded. The right arm was placed into the Arthrex Star sleeve, lateral decubitus traction freitas at 10 pound of traction. The right shoulder was prepped and draped in the normal sterile fashion with ChloraPrep. She received appropriate IV antibiotics within one hour of incision. Phi Chauhan was present for the entire procedure and participated in all essentially portions of the procedure. This included the patients positioning and draping, holding the arthroscope, assisting with retrieving sutures, putting in anchors, holding the cannula for lateral anchor placement and applying rotation to the arm. Given this was a revision rotator cuff repair, this required a skilled executive assistant to president. The right shoulder was infiltrated with lactated Ringers. Standard posterior main portal made with #11 blade. Thirty degree arthroscope introduced into the joint and diagnostic arthroscopy carried out. She had primarily grade 1, small area of grade 2 chondromalacia in the humeral head, glenoid was grade 1. No significant labral tearing. There is a small loose body that appeared to be articular cartilage in the superior recess. The subscapularis was intact and appeared pristine. There is no liftoff during the posterior lever push maneuver. She is already status post biceps tenodesis, so the biceps were not visualized. There is a very high-grade partial articular re-tear with the sutures appearing lax and a significant portion of the tuberosity exposed. An anterior working portal was established with a rotator interval and a purple Arthrex cannula was placed. The loose body was removed with a KingFisher. Slight debridement to the anterior/superior labrum and also with the shaver. The joint was irrigated and drained. The arthroscope was placed into the subacromial space and the lateral working portal established. I performed and extensive bursectomy. The CA ligament was partially released. The undersurface of the acromion was inspected and there was a small residual spur. So, the bur was used to perform an acromioplasty to create more room for the rotator cuff. Next attention was turned to the AC joint where there was almost bone on bone narrowing. She previously had been asymptomatic at the AC joint from the first surgery and then more recently in the postop course had worsening AC joint pain. So, we did agree to proceed with the distal clavicle excision. The bur was used to remove approximately 6 mm of the distal clavicle. Cautery was used to clearly define the posterior superior extent of the residual clavicle and show that there was no remaining impingement. Bony debris was removed with the shaver from the subacromial space and then scar tissue was cleared out from the lateral recess with cautery and shaver. The radiofrequency cautery was then used to complete the tear essentially to release the roughly 15 to 20% remaining intact lateral fibers, so that was released with the cautery and then the labral elevator was used to further complete the tear. Shaver was used to clear out scar tissue and frayed tendon tissue. The tenodesis jukebox route driver was used to then remove all four SwiveLock anchors from the primary procedure. These were 4.75 mm PEEK SwiveLock anchors. All the sutures were also removed. So then the Ring curette was used to clear all soft tissues off the tuberosity to create a bleeding surface. Poor quality leading-edge rotator cuff tissue was dbrided with a shaver, but overall she had excellent remaining quality of tissue and a Cuff grasper was used to manipulate the tendon and this was a standard crescent shaped tear. This was easily reducible for the tuberosity. The undersurface of the rotator cuff was again dbrided with the shaver to have better quality tissue. We then proceeded with a revision SpeedBridge repair. Two separate 5.5 mm PEEK SwiveLock anchors preloaded with tape were placed into the same holes as the original SwiveLocks and these had excellent fixation. From anterior to posterior, I passed the eyelet sutures followed by the tapes and again eyelet sutures followed by the tapes. The eyelet sutures were then tied with a knot pusher using alternating half hitch technique, that set the leading-edge, tension of the supraspinatus and then also set the central portion of the tear. Next, the sutures were brought out to the lateral row cannula and the far anterior eyelet sutures and then one of the anterior tape from each medial anchor, plus one over the posterior eyelets were brought out and loaded through a 5.5 mm PEEK SwiveLock anchor. An awl was used to create a new socket for the lateral tuberosity and then the anchor was docked, sutures tensioned, anchor inserted by hand with excellent fixation. Sutures were cut. The remaining sutures were loaded through another 5.5 SwiveLock and the awl again used to create a socket in the posterior lateral tuberosity, this one also further lateral than the original lateral anchor and then the anchored docked, sutures tensioned and the anchor inserted by hand with excellent fixation. This completed the double row revision rotator cuff repair with no dog ears. The shoulder was then internally and externally rotated. There is no liftoff or buckling. Shoulder was irrigated and drained. Portals closed with nylon suture. We then injected 20 cc of Exparel mixed with 20 cc of 0.5% Marcaine and 20 cc of normal saline. This was injected at the portals followed by the subacromial space followed by the AC joint. Bulky sterile dressing applied. She was then carefully placed into her R2 sling, extubated and transferred to the PACU in stable condition. Postop plan: The patient has to start physical therapy in 2 weeks. The daughter was notified today and the patient informed preop. Part of the re-tearing was likely due to her not starting therapy until 6 weeks after the first surgery. The patient will be passive range of motion only for the first 8 weeks; and then starting week 8, she can be active assisted range of motion. No active range of motion of the shoulder until 12 weeks postop and no rotator cuff strengthening until 4 months postop. EMANUEL
== END 2020-02-01 12:55 | disposition home or self-care (01) ==
LOC: M SDC 06:17 → M MS5PR 13:14 → M SDC 02-01 12:55
PROVIDERS: ATTEND Orthopaedic Surgery
DX: S46.011A Strain of muscle(s) and tendon(s) of the rotator cuff of right shoulder, initial encounter (principal); X58.XXXA Exposure to other specified factors, initial encounter; Y92.89 Other specified places as the place of occurrence of the external cause; Y93.9 Activity, unspecified; Y99.9 Unspecified external cause status; M75.41 Impingement syndrome of right shoulder; M24.611 Ankylosis, right shoulder; I10 Essential (primary) hypertension; E11.9 Type 2 diabetes mellitus without complications; G47.30 Sleep apnea, unspecified; J45.909 Unspecified asthma, uncomplicated; K21.9 Gastro-esophageal reflux disease without esophagitis; Z87.891 Personal history of nicotine dependence; Z79.899 Other long term (current) drug therapy
CPT/HCPCS: 29824; 29826; 29827; 93005; C1713; C9290; J0131; J0690; J1100; J1170; J1885; J2250; J2405; J3010

== ENCOUNTER 2020-03-11 12:58 | Outpatient (RCR) | payer BC, OTHER ==
[~2020-03-11 12:58] MED LIST changes: -LIDOCAINE 1% MDV 20ML VIAL SQ PRN
== END 2020-03-12 ==
LOC: M PT 12:58
PROVIDERS: ATTEND Orthopaedic Surgery
DX: Z47.89 Encounter for other orthopedic aftercare (principal); Z98.890 Other specified postprocedural states

== ENCOUNTER 2020-04-08 14:30 | Outpatient (RCR) | payer BC, OTHER | END 2020-04-12 | LOC: M PT 14:30 | PROVIDERS: ATTEND Orthopaedic Surgery | DX: Z47.89 Encounter for other orthopedic aftercare (principal); Z98.890 Other specified postprocedural states ==

== ENCOUNTER 2020-05-04 13:45 | Outpatient (RCR) | payer BC, OTHER ==
[~2020-05-04 13:45] MED LIST changes: +LISI10TA22 PO; -LISI10TA4 PO; +METH-1165 PO; -METH750T2 PO
== END 2020-05-10 ==
LOC: M PT 13:45
PROVIDERS: ATTEND Orthopaedic Surgery
DX: Z47.89 Encounter for other orthopedic aftercare (principal); Z98.890 Other specified postprocedural states

== ENCOUNTER → 2020-06-10 | Outpatient (RCR) | payer BC, OTHER | LOC: M PT 05-13 09:16 | PROVIDERS: ATTEND Orthopaedic Surgery | DX: Z98.890 Other specified postprocedural states (principal); M25.511 Pain in right shoulder ==

== ENCOUNTER → 2020-12-07 | Outpatient (CLI) | payer BC, OTHER | LOC: M LABSMTC 09:39 | PROVIDERS: ATTEND Anesthesiology | DX: Z01.818 Encounter for other preprocedural examination (principal); Z11.52 Encounter for screening for COVID-19 ==

== ENCOUNTER 2020-12-11 11:49 | Day surgery (SDC) | payer BC, OTHER ==
[~2020-12-11] VITALS: Ht 162.6 cm; Wt 84.3 kg
[~2020-12-11 11:49] MED LIST changes: +BISO5TAB14 PO; +LIDOCAINE 2% 100MG/5ML SDV (FOR ANES.) As Ordered ONE; +LR 1,000 ML IV ONE; +MIDAZOLAM INJ 2MG/2ML VIAL (J2250 PER 1MG) As Ordered ONE; +ONDANSETRON 4MG/2ML VIAL As Ordered ONE; +ceFAZolin SOD 2 GM in IV 1 EA IV ONE; +dexameTHASONE 4 MG/ML 1ML VIAL (J1100 PER 1MG) As Ordered ONE; +fentaNYL 100 MCG/2 ML INJECTION (J3010) As Ordered ONE; +propofoL 200 MG/20 ML VIAL As Ordered ONE
[2020-12-11] MEDS ORDERED: LIDOCAINE 1% SDV 30ML VIAL As Ordered ONE (12:41)
[2020-12-11 15:10] VITALS: BP 129/82
--- NOTE | 2020-12-12 15:57 | RO ---
OPERATIVE NOTE DATE OF OPERATION: 12/11/2020 PREOPERATIVE DIAGNOSIS: Subcutaneous cardiac rhythm monitor in situ POSTOPERATIVE DIAGNOSIS: Subcutaneous cardiac rhythm monitor in situ PROCEDURE: Removal of subcutaneous cardiac rhythm monitor. SURGEON: Naveed Matias MD TEST MAN: None. ANESTHESIA: Lidocaine IV and monitored anesthetic care. SPECIMENS: [facility] subcutaneous cardiac rhythm monitor. ESTIMATED BLOOD LOSS: Less than 5 mL. No blood products replaced. DRAINS: None. COMPLICATIONS: None. DESCRIPTION OF PROCEDURE: The patient was prepped and draped over the left anterior chest and sternal region. An incision was made over the existing scar from the previous loop recorder placement, but made a total length of about 1.5 cm. The incision through the skin was made with a #15 blade. A combination of dissection with the 15 blade and small amounts of electrocautery were used to get down to the anterior capsule and through the anterior capsule overlying the implanted loop recorder. The loop recorder was gripped from the snap and removed from the pocket. Small arterial bleeding was stopped by placing a 2-0 Vicryl to ligate it. Two individual 2-0 Vicryl sutures were used to approximate the deep layer of the incision. The skin was approximated temporarily with a 4-0 Biosyn applied subcuticular with the free ends of the Biosyn suture protruding through the skin 1 cm on both sides of the incision line long axis. Three layers of Dermabond were applied. The Biosyn suture was then pulled through the incision and then removed entirely. The patient tolerated the procedure well without any immediate complications.
== END 2020-12-11 15:30 | disposition home or self-care (01) ==
LOC: M SDC 11:49
PROVIDERS: ATTEND Internal Medicine Cardiovascular Disease
DX: Z45.09 Encounter for adjustment and management of other cardiac device (principal); R07.9 Chest pain, unspecified; E11.40 Type 2 diabetes mellitus with diabetic neuropathy, unspecified; Z98.84 Bariatric surgery status; J45.909 Unspecified asthma, uncomplicated; G47.33 Obstructive sleep apnea (adult) (pediatric); G43.909 Migraine, unspecified, not intractable, without status migrainosus; Z79.899 Other long term (current) drug therapy; Z87.891 Personal history of nicotine dependence; K21.9 Gastro-esophageal reflux disease without esophagitis
CPT/HCPCS: 33286; J0690; J1100; J2250; J2405; J3010

== ENCOUNTER → 2021-07-23 | Outpatient (CLI) | payer MEDICARE ==
[~2021-07-23] MED LIST changes: -LIDOCAINE 2% 100MG/5ML SDV (FOR ANES.) As Ordered ONE; -LR 1,000 ML IV ONE; -MIDAZOLAM INJ 2MG/2ML VIAL (J2250 PER 1MG) As Ordered ONE; -ONDANSETRON 4MG/2ML VIAL As Ordered ONE; -ceFAZolin SOD 2 GM in IV 1 EA IV ONE; -dexameTHASONE 4 MG/ML 1ML VIAL (J1100 PER 1MG) As Ordered ONE; -fentaNYL 100 MCG/2 ML INJECTION (J3010) As Ordered ONE; -propofoL 200 MG/20 ML VIAL As Ordered ONE
== END ==
LOC: M CLY 11:44
PROVIDERS: ATTEND Family Medicine
DX: R05.9 Cough, unspecified (principal)

== ENCOUNTER → 2023-01-31 | Outpatient (CLI) | payer MEDICARE ==
[~2023-01-31] MED LIST changes: +ALBU8.5H INH; +FLUT1BLS6
== END ==
LOC: M RAD 09:58
PROVIDERS: ATTEND Family Medicine
DX: Z87.891 Personal history of nicotine dependence (principal)

== ENCOUNTER → 2023-12-25 | Outpatient (CLI) | payer MEDICARE | LOC: M CLY 11:08 | PROVIDERS: ATTEND Family Medicine | DX: M79.641 Pain in right hand (principal); M79.642 Pain in left hand ==